=== PATIENT | male | born 1960 | race American Indian/Alaskan Native ===

== ENCOUNTER 2018-07-24 20:29 | Inpatient (IN) | payer MEDICARE, OTHER ==
--- NOTE | 2018-07-24 21:22 | ED PDOC ---
Arrival/HPI - General Chief Complaint: GI Problem Time Seen by Provider: 07/24/18 20:42 Historian: Mcfp - History of Present Illness Narrative History of Present Illness (Text): 07/24/18 21:19 58 year old male, whose past medical history includes hypertension, traumatic brain injury, AMS, G-tube placement, CVA with aphasia, and seizures, presents to the emergency department from retirement, for evaluation of vomiting. [facility] informs patient has had multiple episodes of vomiting today. Patient is nonverbal, HPI and ROS limited. Time/Duration: Prior to Arrival, 24 hours Symptom Onset: Gradual Symptom Course: Unchanged Context: Home (retirement) Past Medical History - Provider Review Nursing Documentation Reviewed: Yes - Cardiac Hx Cardiac Disorders: Yes Hx Hypertension: Yes Hx Hypotension: Yes - Neurological Hx Neurological Disorder: Yes HX Cerebrovascular Accident: Yes - HEENT Hx HEENT Disorder: Yes Hx Deafness: Yes - Gastrointestinal Hx Gastrointestinal Disorders: Yes Hx Gastroesophageal Reflux: Yes - Psychiatric Hx Substance Use: No Family/Social History - Physician Review Nursing Documentation Reviewed: Yes Family/Social History: No Known Family HX Smoking Status: Unknown If Ever Smoked Hx Alcohol Use: No Hx Substance Use: No Allergies/Home Meds Allergies/Adverse Reactions: Allergies No Known Allergies Allergy (Verified 07/24/18 20:38) Review of Systems - Physician Review All systems were reviewed & negative as marked: Yes - Review of Systems Systems not reviewed;Unavailable: Altered Mental Status Gastrointestinal: Vomiting Physical Exam Vital Signs Reviewed: Yes Vital Signs Temp Pulse Resp BP Pulse Ox 07/24/18 20:51 98.5 F 95 H 18 121/87 99 Temperature: Afebrile Blood Pressure: Normal Pulse: Tachycardic Respiratory Rate: Normal Appearance: Positive for: Well-Appearing, Non-Toxic, Comfortable Pain Distress: None Mental Status: Positive for: Alert and Oriented X 3 - Systems Exam Head: Present: Atraumatic, Normocephalic Pupils: Present: PERRL Extroacular Muscles: Present: EOMI Conjunctiva: Present: Normal Mouth: Present: Moist Mucous Membranes Neck: Present: Normal Range of Motion Respiratory/Chest: Present: Clear to Auscultation, Good Air Exchange. No: Respiratory Distress, Accessory Muscle Use Cardiovascular: Present: Regular Rate and Rhythm, Normal S1, S2. No: Murmurs Abdomen: Present: Ostomy Tubes (G-tube in place). No: Tenderness, Distention, Peritoneal Signs Back: Present: Normal Inspection Upper Extremity: Present: Normal Inspection. No: Cyanosis, Edema Lower Extremity: Present: Normal Inspection. No: Edema Neurological: Present: GCS=15, CN II-XII Intact, Speech Normal, Other (Positive contractures) Skin: Present: Warm, Dry, Normal Color. No: Rashes Medical Decision Making ED Course and Treatment: 07/24/18 21:35 Impression: 58 year old male presents with vomiting. Plan: -- CT ABD & Pelvis -- EKG -- CMP, Lipase, Cardiac iso -- CBC -- Chest X-ray -- Zofran -- Urinalysis -- Reassess and disposition Prior Visits: Notes and results from previous visits were reviewed. Progress Notes: 07/25/18 00:40 CT Abdomen and Pelvis without IV contrast CLINICAL HISTORY: VOMITING TECHNIQUE: Axial computed tomography images of the abdomen and pelvis without intravenous contrast. 648.91 mGy-cm CONTRAST: Without COMPARISON: None provided. FINDINGS: LUNG BASES: Mild dependent atelectasis at the lung bases. LIVER: Unremarkable. GALLBLADDER AND BILE DUCTS: The gallbladder appears within normal limits. No radioopaque gallstones are seen. No biliary ductal dilatation is evident. PANCREAS: Unremarkable. SPLEEN: Unremarkable. ADRENAL GLANDS: Unremarkable. KIDNEYS, URETERS, AND BLADDER: The bladder is partially decompressed and grossly unremarkable. STOMACH AND BOWEL: Small to moderate hiatal hernia. There is a percutaneous gastrostomy tube which appears intraluminal to the distal stomach. No bowel obstruction. APPENDIX: No evidence of acute appendicitis on CT examination. PERITONEUM: No pneumoperitoneum. No ascites. LYMPH NODES: No lymphadenopathy. REPRODUCTIVE: Unremarkable as visualized. VASCULATURE: Mild atherosclerotic changes of the abdominal aorta. BONES: There are moderate multilevel degenerative spine changes. MISCELLANEOUS: There is a fat and fluid containing left inguinal hernia. IMPRESSION: 1. No acute pathology identified in the abdomen or pelvis. 2. Additional and incidental findings as described. 07/25/18 01:00 Case had been discussed with who accepted to his service. on consult. - RAD Interpretation Narrative RAD Interpretations (Text): 07/25/18 00:40 CXR- No acute process Radiology Orders: 07/24/18 21:14 CHEST PORTABLE [RAD] Stat 07/24/18 21:16 ABD & PELVIS W/O PO OR IV CONT [CT] Stat - EKG Interpretation EKG Interpretation (Text): 07/25/18 00:39 EKG-NSR@89,non specific T wave changes Interpreted by ED Physician: Yes Type: 12 lead EKG - Medication Orders Current Medication Orders: Sodium Chloride (Sodium Chloride 0.9%) 1,000 mls @ 100 mls/hr IV .Q10H [facility] Ondansetron HCl (Zofran Inj) 4 mg IVP ONCE ONE Stop: 07/24/18 21:18 - Scribe Statement The provider has reviewed the documentation as recorded by the Raineibkevin Jeter Provider Scribe Attestation: All medical record entries made by the Scribe were at my direction and personally dictated by me. I have reviewed the chart and agree that the record accurately reflects my personal performance of the history, physical exam, medical decision making, and the department course for this patient. I have also personally directed, reviewed, and agree with the discharge instructions and disposition. Disposition/Present on Arrival - Present on Arrival Any Indicators Present on Arrival: No History of DVT/PE: No History of Uncontrolled Diabetes: No Urinary Catheter: No History of Decub. Ulcer: No History Surgical Site Infection Following: None - Disposition Have Diagnosis and Disposition been Completed?: Yes Diagnosis: Vomiting, Leukocytosis Disposition: HOSPITALIZED Disposition Time: 02:00 Patient Plan: Observation Condition: STABLE Referrals: Sonny Cano DO [Primary Care Provider] - Follow up with primary Forms: Rh[employer] (Pakistani)
[2018-07-24] MEDS ORDERED: Sodium Chloride 0.9% 1,000 ML IV SCH (21:30)
[2018-07-24 22:11] LABS: HEMOGLOBIN 11.4 g/dL (14.0-18.0); MEAN CORPUSCULAR HEMOGLOBIN 26.1 pg (25.0-35.0); MEAN CORPUSCULAR HGB CONC 31.1 g/dl (31.0-37.0); RBC 4.37 10^6/uL (3.5-6.1); RED CELL DISTRIBUTION WIDTH 19.5 % (11.5-14.5); WHITE BLOOD COUNT 16.3 10^3/uL (4.5-11.0)
[2018-07-24 22:14] LABS: ALB/GLOB RATIO 0.9 (1.1-1.8); ALBUMIN 4.1 g/dL (3.0-4.8); ALT/SGPT 14 U/L (7-56); AST/SGOT 42 U/L (17-59); BLOOD UREA NITROGEN 26 mg/dL (7-21); CALCIUM 9.4 mg/dL (8.4-10.5); GFR NON-AFRICAN AMERICAN > 60; LIPASE 68 U/L (23-300)
[2018-07-24 22:25] LABS: TROPONIN I < 0.01 ng/mL
[2018-07-24 22:30] LABS: CK-MB 0.7 ng/mL (0.0-3.6)
[2018-07-25] MEDS ORDERED: Sodium Chloride 0.9% 1,000 ML IV STA ×2 (02:08→09:12)
[2018-07-25] MEDS ORDERED: cefTRIAXone 1 gm 1 GM/100 ML BAG IV STA (03:34)
[2018-07-25 03:43] LABS: URINE BILIRUBIN NEGATIVE (NEGATIVE); URINE BLOOD LARGE (NEGATIVE); URINE GLUCOSE (UA) NEGATIVE (NEGATIVE); URINE LEUKOCYTE ESTERASE SMALL Leu/uL (NEGATIVE); URINE PROTEIN 30 mg/dL (<30 mg/dL); URINE UROBILINOGEN 0.2 E.U./dL (<1 E.U./dL)
[2018-07-25 03:51] LABS: URINE APPEARANCE CLEAR (CLEAR); URINE COLOR YELLOW (YELLOW)
[2018-07-25 04:00] LABS: URINE BACTERIA OCC /hpf; URINE EPITHELIAL CELLS 0 - 2 /hpf (0-5); URINE RBC 25 - 30 /hpf (0-2)
[2018-07-25 06:48] VITALS: BMI 19.9
--- NOTE | 2018-07-25 09:03 | RAD ---
Date of service: 07/24/2018 PROCEDURE: CHEST RADIOGRAPH, 1 VIEW HISTORY: vomiting COMPARISON: None available. FINDINGS: LUNGS: Clear. PLEURA: No pneumothorax or pleural fluid seen. CARDIOVASCULAR: No aortic atherosclerotic calcification present. Normal. OSSEOUS STRUCTURES: No significant abnormalities. VISUALIZED UPPER ABDOMEN: Normal. OTHER FINDINGS: None. IMPRESSION: No active disease.
[2018-07-25] MEDS ORDERED: Ipratropium 0.02% Inhal Soln (0.5 mg/2.5 ml) UD IH PRN (09:10)
--- NOTE | 2018-07-25 09:11 | CP.PCM.CON ---
<Angy Pereira - Last Filed: 07/25/18 16:20> History of Present Illness - History of Present Illness History of Present Illness: GastroenterologyFellow/[id number] Note 58 year old male with PMH of CVA with aphasia, traumatic brain injury s/p PEG placement, seizures, and HTN presenting with vomiting. Nursing facility contacted with note of initiating Jevity feedings at 3PM followed by three episodes of bilious vomiting despite decreasing feeding rate to 30cc/hr from 60cc/hr. Nurse denied signs of abdominal pain, diarrhea, constipation, hematemesis, melena, or hematochezia. Since admission, no further episodes of vomiting. Unable to confirm prior endoscopic history. Family History- unable to confirm Social History- unable to confirm Surgical History- unable to confirm Review of Systems - Review of Systems Review of Systems: 12-point review of systems negative except for as above Past Patient History - Past Social History Smoking Status: Never Smoked - CARDIAC Hx Cardiac Disorders: Yes Hx Hypertension: Yes - NEUROLOGICAL Hx Neurological Disorder: Yes HX Cerebrovascular Accident: Yes - HEENT Hx HEENT Problems: Yes Hx Deafness: Yes - MUSCULOSKELETAL/RHEUMATOLOGICAL Hx Musculoskeletal Disorders: Yes Hx Arthritis: Yes Hx Falls: Yes Other/Comment: contractures - GASTROINTESTINAL Hx Gastrointestinal Disorders: Yes Hx Gastroesophageal Reflux: Yes - GENITOURINARY/GYNECOLOGICAL Hx Genitourinary Disorders: Yes Other/Comment: neuromuscular dysfuntion of bladder - PSYCHIATRIC Hx Substance Use: No Meds Allergies/Adverse Reactions: Allergies Allergy/AdvReac Type Severity Reaction Status Date / Time No Known Allergies Allergy Verified 07/24/18 20:38 - Medications Medications: Current Medications Sodium Chloride (Sodium Chloride 0.9%) 1,000 mls @ 100 mls/hr IV .Q10H [facility] Last Admin: 07/24/18 21:56 Dose: 100 mls/hr Sodium Chloride (Sodium Chloride 0.9%) 1,000 mls @ 100 mls/hr IV .Q10H [facility] Stop: 07/25/18 12:07 Piperacillin Sod/Tazobactam Sod (Zosyn 3.375 In Ns 100ml) 100 mls @ 25 mls/hr IVPB Q8 [facility]; Protocol Stop: 08/01/18 14:01 Physical Exam - Constitutional Appears: Non-toxic, No Acute Distress - Head Exam Head Exam: ATRAUMATIC, NORMOCEPHALIC - Eye Exam Eye Exam: EOMI, PERRL. absent: Scleral icterus Pupil Exam: PERRL. absent: Miosis, Mydriatic - ENT Exam ENT Exam: Mucous Membranes Moist, Normal Oropharynx - Neck Exam Neck exam: Positive for: Full Rom, Normal Inspection - Respiratory Exam Respiratory Exam: Clear to Auscultation Bilateral. absent: Rales, Rhonchi, Wh eezes - Cardiovascular Exam Cardiovascular Exam: RRR, +S1, +S2. absent: Gallop, Rubs - GI/Abdominal Exam GI & Abdominal Exam: Hypoactive Bowel Sounds, Soft. absent: Distended, Firm, Guarding, Mass, Organomegaly, Rebound, Rigid, Tenderness Additional comments: PEG site LUQ C/D/I - Extremities Exam Extremities exam: Positive for: pedal edema Additional comments: flexion contractures - Neurological Exam Neurological exam: Alert, Oriented x3 - Psychiatric Exam Psychiatric exam: Normal Affect, Normal Mood Additional comments: unable to assess, nonverbal - Skin Skin Exam: Dry, Intact, Normal Color, Warm Results - Vital Signs Recent Vital Signs: Last Vital Signs Temp 98 F 07/25/18 06:00 Pulse 90 07/25/18 06:00 Resp 20 07/25/18 06:39 BP 150/89 07/25/18 06:00 Pulse Ox 100 07/25/18 06:00 - Labs Result Diagrams: 07/24/18 21:59 07/24/18 21:59 Labs: Laboratory Results - last 24 hr 07/24/18 07/24/18 07/24/18 21:59 21:59 22:01 WBC 16.3 H RBC 4.37 Hgb 11.4 L Hct 36.7 L MCV 84.0 MCH 26.1 MCHC 31.1 RDW 19.5 H Plt Count 406 MPV 11.0 Sodium 144 Potassium 4.5 Chloride 106 Carbon Dioxide 30 Anion Gap 13 BUN 26 H Creatinine 1.2 Est GFR ( Amer) > 60 Est GFR (Non-Af Amer) > 60 POC Glucose (mg/dL) 147 H Random Glucose 139 H Calcium 9.4 Total Bilirubin 0.5 AST 42 ALT 14 Alkaline Phosphatase 123 Lactate Dehydrogenase 455 Total Creatine Kinase 611 H CK-MB (CK-2) 0.7 CK-MB (CK-2) % Cancelled Troponin I < 0.01 Total Protein 8.7 H Albumin 4.1 Globulin 4.6 Albumin/Globulin Ratio 0.9 L Lipase 68 Urine Color Urine Appearance Urine pH Ur Specific [place] Urine Protein Urine Glucose (UA) Urine Ketones Urine Blood Urine Nitrate Urine Bilirubin Urine Urobilinogen Ur Leukocyte Esterase Urine RBC Urine WBC Ur Epithelial Cells Urine Bacteria 07/25/18 07/25/18 03:25 03:30 WBC RBC Hgb Hct MCV MCH MCHC RDW Plt Count MPV Sodium Potassium Chloride Carbon Dioxide Anion Gap BUN Creatinine Est GFR ( Amer) Est GFR (Non-Af Amer) POC Glucose (mg/dL) 131 H Random Glucose Calcium Total Bilirubin AST ALT Alkaline Phosphatase Lactate Dehydrogenase Total Creatine Kinase CK-MB (CK-2) CK-MB (CK-2) % Troponin I Total Protein Albumin Globulin Albumin/Globulin Ratio Lipase Urine Color Yellow Urine Appearance Clear Urine pH 6.0 Ur Specific [place] >= 1.030 Urine Protein 30 H Urine Glucose (UA) Negative Urine Ketones Negative Urine Blood Large H Urine Nitrate Negative Urine Bilirubin Negative Urine Urobilinogen 0.2 Ur Leukocyte Esterase Small H Urine RBC 25 - 30 H Urine WBC 1 - 3 Ur Epithelial Cells 0 - 2 Urine Bacteria Occ Assessment & Plan - Assessment and Plan (Free Text) Assessment: 58 year old male with PMH of CVA with aphasia, traumatic brain injury s/p PEG placement, seizures, and HTN presenting with vomiting. Unable to confirm prior endoscopic history. Plan: -remote vomiting episode -ID ruling out infectious process given SIRs criteria-leukocytosis and tachycardia -on Zosyn -no further episodes of vomiting since admission -CT A/P w/o contrast with no acute pathology -restart tube feedings as tolerated -monitor for recurrence of symptoms -anti-emetics as needed -will follow clinical course <Hunter Adams - Last Filed: 07/25/18 16:36> Meds - Medications Medications: Current Medications Atorvastatin Calcium (Lipitor) 40 mg GT DIN [facility] Clopidogrel Bisulfate (Plavix) 75 mg GT DAILY [facility] Last Admin: 07/25/18 11:04 Dose: 75 mg Enoxaparin Sodium (Lovenox) 40 mg SC DAILY [facility]; Protocol Last Admin: 07/25/18 11:04 Dose: 40 mg Piperacillin Sod/Tazobactam Sod (Zosyn 3.375 In Ns 100ml) 100 mls @ 25 mls/hr IVPB Q8 [facility]; Protocol Stop: 08/01/18 14:01 Last Admin: 07/25/18 13:46 Dose: 25 mls/hr Ipratropium [place] (Atrovent) 0.5 mg IH Q2 PRN PRN Reason: Shortness of Breath Metoprolol Tartrate (Lopressor) 25 mg GT BID [facility] Last Admin: 07/25/18 11:04 Dose: 25 mg Ondansetron HCl (Zofran Inj) 4 mg IVP Q6H PRN PRN Reason: Nausea/Vomiting Valproate Sodium (Depakene Oral Soln) 750 mg GT Q12 [facility] Last Admin: 07/25/18 11:04 Dose: 750 mg Results - Vital Signs Recent Vital Signs: Last Vital Signs Temp 98 F 07/25/18 06:00 Pulse 90 07/25/18 06:00 Resp 20 07/25/18 06:39 BP 150/89 07/25/18 06:00 Pulse Ox 100 07/25/18 06:00 - Labs Result Diagrams: 07/25/18 16:18 07/24/18 21:59 Labs: Laboratory Results - last 24 hr 07/24/18 07/24/18 07/24/18 21:59 21:59 22:01 WBC 16.3 H RBC 4.37 Hgb 11.4 L Hct 36.7 L MCV 84.0 MCH 26.1 MCHC 31.1 RDW 19.5 H Plt Count 406 MPV 11.0 Sodium 144 Potassium 4.5 Chloride 106 Carbon Dioxide 30 Anion Gap 13 BUN 26 H Creatinine 1.2 Est GFR ( Amer) > 60 Est GFR (Non-Af Amer) > 60 POC Glucose (mg/dL) 147 H Random Glucose 139 H Calcium 9.4 Total Bilirubin 0.5 AST 42 ALT 14 Alkaline Phosphatase 123 Lactate Dehydrogenase 455 Total Creatine Kinase 611 H CK-MB (CK-2) 0.7 CK-MB (CK-2) % Cancelled Troponin I < 0.01 Total Protein 8.7 H Albumin 4.1 Globulin 4.6 Albumin/Globulin Ratio 0.9 L Lipase 68 Urine Color Urine Appearance Urine pH Ur Specific [place] Urine Protein Urine Glucose (UA) Urine Ketones Urine Blood Urine Nitrate Urine Bilirubin Urine Urobilinogen Ur Leukocyte Esterase Urine RBC Urine WBC Ur Epithelial Cells Urine Bacteria 07/25/18 07/25/18 07/25/18 03:25 03:30 16:18 WBC 15.6 H RBC 4.18 Hgb 10.8 L Hct 34.8 L MCV 83.3 MCH 25.8 MCHC 31.0 RDW 19.3 H Plt Count 409 MPV 10.8 Sodium Potassium Chloride Carbon Dioxide Anion Gap BUN Creatinine Est GFR ( Amer) Est GFR (Non-Af Amer) POC Glucose (mg/dL) 131 H Random Glucose Calcium Total Bilirubin AST ALT Alkaline Phosphatase Lactate Dehydrogenase Total Creatine Kinase CK-MB (CK-2) CK-MB (CK-2) % Troponin I Total Protein Albumin Globulin Albumin/Globulin Ratio Lipase Urine Color Yellow Urine Appearance Clear Urine pH 6.0 Ur Specific [place] >= 1.030 Urine Protein 30 H Urine Glucose (UA) Negative Urine Ketones Negative Urine Blood Large H Urine Nitrate Negative Urine Bilirubin Negative Urine Urobilinogen 0.2 Ur Leukocyte Esterase Small H Urine RBC 25 - 30 H Urine WBC 1 - 3 Ur Epithelial Cells 0 - 2 Urine Bacteria Occ Attending/Attestation - Attestation I have personally seen and examined this patient.: Yes I have fully participated in the care of the patient.: Yes I have reviewed all pertinent clinical information: Yes Notes (Text): 07/25/18 16:31 I have seen and examined patient with GI fellow. Agree with above documentation with the following additions. In brief, this is a 58 year old male with history of CVA on plavix, aphasia, TBI s/p PEG placement, seizure disorder, HTN who presents from nursing facility with complaint of vomiting. Patient himself is not able to participate in meaningful conversation, additional information obtained via chart review and discussion with nursing staff and patient family members. He apparently had 3 episodes of non-bloody emesis while at nursing facility when tube feeding rate was attempted to be increased. There is no reported abdominal pain, fever/chills, weight loss. He was reportedly having on ce daily normal bowel movements. Unclear regarding prior endoscopic history. There has been no recurrent vomiting since arrival to hospital. CVA on plavix, aphasia TBI s/p PEG placement Seizure disorder HTN Leukocytosis Vomiting - resolved - May resume tube feeding at rate of 30 cc and advance slowly by 5 cc per hour to target of 50cc - Maintain strict aspiration precautions with head of bed elevation during feeds - Continue with antibiotic therapy as per ID - Anti-emetic therapy PRN - Continue with supportive care - No further planned GI interventions at this time, will sign off case. Please reconsult as necessary, thank you.
[2018-07-25] MEDS: Enoxaparin 40 mg Syringe SC SCH (11:04)
[2018-07-25] MEDS: Valproic Acid 250 mg/5 ml UD Cup GT SCH (11:04)
--- NOTE | 2018-07-25 12:04 | CARD ---
APPROVED REPORT Date of service: 07/24/2018 EKG Measurement Heart [id number] <Conclusion> Normal sinus rhythm with premature atrial complexes Otherwise normal ECG
--- NOTE | 2018-07-25 12:15 | CT ---
Date of service: 07/24/2018 PROCEDURE: CT Abdomen and Pelvis without intravenous contrast HISTORY: vomiting COMPARISON: None. TECHNIQUE: Without contrast.. Contrast dose: Radiation dose: Total exam DLP = 648.91 mGy-cm. This CT exam was performed using one or more of the following dose reduction techniques: Automated exposure control, adjustment of the mA and/or kV according to patient size, and/or use of iterative reconstruction technique. FINDINGS: LOWER THORAX: Unremarkable. LIVER: Unremarkable. No gross lesion or ductal dilatation. GALLBLADDER AND BILE DUCTS: Unremarkable. PANCREAS: Unremarkable. No gross lesion or ductal dilatation. SPLEEN: Unremarkable. ADRENALS: Unremarkable. No mass. KIDNEYS AND URETERS: Unremarkable. No hydronephrosis. No solid mass. VASCULATURE: Unremarkable. No aortic aneurysm. No aortic atherosclerotic calcification or mural plaque present. BOWEL: Unremarkable. No obstruction. No gross mural thickening. There is a gastrostomy tube in satisfactory position APPENDIX: Unremarkable. Normal appendix. PERITONEUM: Unremarkable. No free fluid. No free air. Small fat containing left inguinal hernia. This contains a small amount of fluid LYMPH NODES: Unremarkable. No enlarged lymph nodes. BLADDER: Unremarkable. REPRODUCTIVE: Unremarkable. BONES: No acute fracture. OTHER FINDINGS: The report concurs with the preliminary [facility] report IMPRESSION: No acute intra-abdominal findings
[2018-07-25] MEDS: Piperacillin/Tazobact 3.375 gm 100 ML IVPB SCH (13:46)
--- NOTE | 2018-07-25 14:51 | CP.PCM.CON ---
<Mayito Santos - Last Filed: 07/25/18 14:48> History of Present Illness - History of Present Illness History of Present Illness: Infectious disease consult note: 58-year-old male with past medical history of CVA with aphasia, traumatic brain injury, seizure disorder, hypertension, presents to the ED with vomiting. Patient is nonverbal due to the aphasia therefore HPI was limited. As per nursing notes and prior notes patient was sent from the [facility] for vomiting. Patient has a PEG tube placed and was fed through it however was vomiting up food. No reported history of abdominal pain. Infectious disease was consulted for vomiting and leukocytosis. 12 point ROS and further HPI was unobtainable due to nonverbal Review of Systems - Review of Systems Systems not reviewed;Unavailable: Other (Aphasia due to stroke) Past Patient History - Past Social History Smoking Status: Never Smoked - CARDIAC Hx Cardiac Disorders: Yes Hx Hypertension: Yes - NEUROLOGICAL Hx Neurological Disorder: Yes HX Cerebrovascular Accident: Yes - HEENT Hx HEENT Problems: Yes Hx Deafness: Yes - MUSCULOSKELETAL/RHEUMATOLOGICAL Hx Musculoskeletal Disorders: Yes Hx Arthritis: Yes Hx Falls: Yes Other/Comment: contractures - GASTROINTESTINAL Hx Gastrointestinal Disorders: Yes Hx Gastroesophageal Reflux: Yes - GENITOURINARY/GYNECOLOGICAL Hx Genitourinary Disorders: Yes Other/Comment: neuromuscular dysfuntion of bladder - PSYCHIATRIC Hx Substance Use: No Meds Allergies/Adverse Reactions: Allergies Allergy/AdvReac Type Severity Reaction Status Date / Time No Known Allergies Allergy Verified 07/24/18 20:38 - Medications Medications: Current Medications Atorvastatin Calcium (Lipitor) 40 mg GT DIN [facility] Clopidogrel Bisulfate (Plavix) 75 mg GT DAILY [facility] Last Admin: 07/25/18 11:04 Dose: 75 mg Enoxaparin Sodium (Lovenox) 40 mg SC DAILY [facility]; Protocol Last Admin: 07/25/18 11:04 Dose: 40 mg Piperacillin Sod/Tazobactam Sod (Zosyn 3.375 In Ns 100ml) 100 mls @ 25 mls/hr IVPB Q8 [facility]; Protocol Stop: 08/01/18 14:01 Last Admin: 07/25/18 13:46 Dose: 25 mls/hr Ipratropium [place] (Atrovent) 0.5 mg IH Q2 PRN PRN Reason: Shortness of Breath Metoprolol Tartrate (Lopressor) 25 mg GT BID [facility] Last Admin: 07/25/18 11:04 Dose: 25 mg Ondansetron HCl (Zofran Inj) 4 mg IVP Q6H PRN PRN Reason: Nausea/Vomiting Valproate Sodium (Depakene Oral Soln) 750 mg GT Q12 [facility] Last Admin: 07/25/18 11:04 Dose: 750 mg Physical Exam - Constitutional Appears: No Acute Distress - Head Exam Head Exam: ATRAUMATIC, NORMOCEPHALIC - Eye Exam Eye Exam: EOMI - ENT Exam ENT Exam: Mucous Membranes Moist - Respiratory Exam Respiratory Exam: Clear to Auscultation Bilateral. absent: Rales, Wheezes - Cardiovascular Exam Cardiovascular Exam: REGULAR RHYTHM, +S1, +S2 - GI/Abdominal Exam GI & Abdominal Exam: Normal Bowel Sounds, Soft. absent: Distended, Tenderness Additional comments: Area around the PEG tube site clean no erythema - Extremities Exam Extremities exam: Negative for: calf tenderness, pedal edema - Neurological Exam Neurological exam: Alert, Oriented x3 - Psychiatric Exam Psychiatric exam: Normal Mood - Skin Skin Exam: Dry, Warm Results - Vital Signs Recent Vital Signs: Last Vital Signs Temp 98 F 07/25/18 06:00 Pulse 90 07/25/18 06:00 Resp 20 07/25/18 06:39 BP 150/89 07/25/18 06:00 Pulse Ox 100 07/25/18 06:00 - Labs Result Diagrams: 07/24/18 21:59 07/24/18 21:59 Labs: Laboratory Results - last 24 hr 07/24/18 07/24/18 07/24/18 21:59 21:59 22:01 WBC 16.3 H RBC 4.37 Hgb 11.4 L Hct 36.7 L MCV 84.0 MCH 26.1 MCHC 31.1 RDW 19.5 H Plt Count 406 MPV 11.0 Sodium 144 Potassium 4.5 Chloride 106 Carbon Dioxide 30 Anion Gap 13 BUN 26 H Creatinine 1.2 Est GFR ( Amer) > 60 Est GFR (Non-Af Amer) > 60 POC Glucose (mg/dL) 147 H Random Glucose 139 H Calcium 9.4 Total Bilirubin 0.5 AST 42 ALT 14 Alkaline Phosphatase 123 Lactate Dehydrogenase 455 Total Creatine Kinase 611 H CK-MB (CK-2) 0.7 CK-MB (CK-2) % Cancelled Troponin I < 0.01 Total Protein 8.7 H Albumin 4.1 Globulin 4.6 Albumin/Globulin Ratio 0.9 L Lipase 68 Urine Color Urine Appearance Urine pH Ur Specific [place] Urine Protein Urine Glucose (UA) Urine Ketones Urine Blood Urine Nitrate Urine Bilirubin Urine Urobilinogen Ur Leukocyte Esterase Urine RBC Urine WBC Ur Epithelial Cells Urine Bacteria 07/25/18 07/25/18 03:25 03:30 WBC RBC Hgb Hct MCV MCH MCHC RDW Plt Count MPV Sodium Potassium Chloride Carbon Dioxide Anion Gap BUN Creatinine Est GFR ( Amer) Est GFR (Non-Af Amer) POC Glucose (mg/dL) 131 H Random Glucose Calcium Total Bilirubin AST ALT Alkaline Phosphatase Lactate Dehydrogenase Total Creatine Kinase CK-MB (CK-2) CK-MB (CK-2) % Troponin I Total Protein Albumin Globulin Albumin/Globulin Ratio Lipase Urine Color Yellow Urine Appearance Clear Urine pH 6.0 Ur Specific [place] >= 1.030 Urine Protein 30 H Urine Glucose (UA) Negative Urine Ketones Negative Urine Blood Large H Urine Nitrate Negative Urine Bilirubin Negative Urine Urobilinogen 0.2 Ur Leukocyte Esterase Small H Urine RBC 25 - 30 H Urine WBC 1 - 3 Ur Epithelial Cells 0 - 2 Urine Bacteria Occ Assessment & Plan - Assessment and Plan (Free Text) Assessment: 58-year-old male with past medical history of CVA with aphasia, traumatic brain injury, seizure disorder, hypertension, presents with vomiting. Patient also found to have leukocytosis of 16. Continue with Zosyn for any intra-abdominal infection Follow-up CBC ordered F/u abdominal CT Follow-up septic workup Continue to monitor for any changes Case and plan was reviewed and discussed with Dr. Thornton <Ean Thornton - Last Filed: 07/25/18 16:04> Meds - Medications Medications: Current Medications Atorvastatin Calcium (Lipitor) 40 mg GT DIN [facility] Clopidogrel Bisulfate (Plavix) 75 mg GT DAILY [facility] Last Admin: 07/25/18 11:04 Dose: 75 mg Enoxaparin Sodium (Lovenox) 40 mg SC DAILY [facility]; Protocol Last Admin: 07/25/18 11:04 Dose: 40 mg Piperacillin Sod/Tazobactam Sod (Zosyn 3.375 In Ns 100ml) 100 mls @ 25 mls/hr IVPB Q8 [facility]; Protocol Stop: 08/01/18 14:01 Last Admin: 07/25/18 13:46 Dose: 25 mls/hr Ipratropium [place] (Atrovent) 0.5 mg IH Q2 PRN PRN Reason: Shortness of Breath Metoprolol Tartrate (Lopressor) 25 mg GT BID [facility] Last Admin: 07/25/18 11:04 Dose: 25 mg Ondansetron HCl (Zofran Inj) 4 mg IVP Q6H PRN PRN Reason: Nausea/Vomiting Valproate Sodium (Depakene Oral Soln) 750 mg GT Q12 [facility] Last Admin: 07/25/18 11:04 Dose: 750 mg Results - Vital Signs Recent Vital Signs: Last Vital Signs Temp 98 F 07/25/18 06:00 Pulse 90 07/25/18 06:00 Resp 20 07/25/18 06:39 BP 150/89 07/25/18 06:00 Pulse Ox 100 07/25/18 06:00 - Labs Result Diagrams: 07/24/18 21:59 07/24/18 21:59 Labs: Laboratory Results - last 24 hr 07/24/18 07/24/18 07/24/18 21:59 21:59 22:01 WBC 16.3 H RBC 4.37 Hgb 11.4 L Hct 36.7 L MCV 84.0 MCH 26.1 MCHC 31.1 RDW 19.5 H Plt Count 406 MPV 11.0 Sodium 144 Potassium 4.5 Chloride 106 Carbon Dioxide 30 Anion Gap 13 BUN 26 H Creatinine 1.2 Est GFR ( Amer) > 60 Est GFR (Non-Af Amer) > 60 POC Glucose (mg/dL) 147 H Random Glucose 139 H Calcium 9.4 Total Bilirubin 0.5 AST 42 ALT 14 Alkaline Phosphatase 123 Lactate Dehydrogenase 455 Total Creatine Kinase 611 H CK-MB (CK-2) 0.7 CK-MB (CK-2) % Cancelled Troponin I < 0.01 Total Protein 8.7 H Albumin 4.1 Globulin 4.6 Albumin/Globulin Ratio 0.9 L Lipase 68 Urine Color Urine Appearance Urine pH Ur Specific [place] Urine Protein Urine Glucose (UA) Urine Ketones Urine Blood Urine Nitrate Urine Bilirubin Urine Urobilinogen Ur Leukocyte Esterase Urine RBC Urine WBC Ur Epithelial Cells Urine Bacteria 07/25/18 07/25/18 03:25 03:30 WBC RBC Hgb Hct MCV MCH MCHC RDW Plt Count MPV Sodium Potassium Chloride Carbon Dioxide Anion Gap BUN Creatinine Est GFR ( Amer) Est GFR (Non-Af Amer) POC Glucose (mg/dL) 131 H Random Glucose Calcium Total Bilirubin AST ALT Alkaline Phosphatase Lactate Dehydrogenase Total Creatine Kinase CK-MB (CK-2) CK-MB (CK-2) % Troponin I Total Protein Albumin Globulin Albumin/Globulin Ratio Lipase Urine Color Yellow Urine Appearance Clear Urine pH 6.0 Ur Specific [place] >= 1.030 Urine Protein 30 H Urine Glucose (UA) Negative Urine Ketones Negative Urine Blood Large H Urine Nitrate Negative Urine Bilirubin Negative Urine Urobilinogen 0.2 Ur Leukocyte Esterase Small H Urine RBC 25 - 30 H Urine WBC 1 - 3 Ur Epithelial Cells 0 - 2 Urine Bacteria Occ Assessment & Plan - Assessment and Plan (Free Text) Assessment: Infectious diseases Attending Physician Attestation Patient seen and examined, discussed with medical equipment technician. I have reviewed the patient's history of present illness, past medical, social, personal and family histories, pertinent physical exam findings, course so far in this hospital admission, pertinent laboratory and imaging results. I agree with the above findings, assessment and plan. In addition,started Zosyn for patient with SIRS, with vomiting R/O intra-abdominal infection. Follow up CT A/P results and will follow up blood cx.
[2018-07-25 16:21] LABS: HEMOGLOBIN 10.8 g/dL (14.0-18.0); MEAN CELL VOLUME 83.3 fl (80.0-105.0); MEAN CORPUSCULAR HEMOGLOBIN 25.8 pg (25.0-35.0); MEAN PLATELET VOLUME 10.8 fl (7.0-11.0); RBC 4.18 10^6/uL (3.5-6.1); RED CELL DISTRIBUTION WIDTH 19.3 % (11.5-14.5); WHITE BLOOD COUNT 15.6 10^3/uL (4.5-11.0)
--- NOTE | 2018-07-25 19:52 | HP ---
DATE OF EXAM: 07/25/2018 HISTORY OF PRESENT ILLNESS: He is from the long term. He has been on IV antibiotics for an infection. He got worse. He had nausea and vomiting for 3 days in a row, even though I was decreasing and stopping the NG tube feedings, it is still. He is having nausea and vomiting, so we sent him to the emergency room as a 3 days of trying to fix. He has also been on IV antibiotics for his sepsis in the long term. PAST MEDICAL HISTORY: He is a 58-year-old man with the past medical history that includes traumatic brain injury, altered mental status, G-tube placement, CVA with aphasia, seizures, and multiple infections from the urine. He is on IV antibiotics on and off for the past 3 months. Now, he starting to have nausea and vomiting. He has hypertension, hypotension, CVA, and he has got reflux. SOCIAL HISTORY: No smoke. No drink. No drugs. ALLERGIES: NO KNOWN DRUG ALLERGIES. MEDICATIONS: He has a list of medicines and his list is nonverbal. REVIEW OF SYSTEMS: Cannot do review of systems. PHYSICAL EXAMINATION: VITAL SIGNS: He has 98.5 temperature, 95 pulse, 18 respiratory rate, 121/87 blood pressure, and 99% O2 sat. GENERAL: He does open his eyes. He is very alert today, which is good for him at his basic mental appearance. He is well-appearing and nontoxic. Eyes open; he looked at me. He is alert and oriented, I believe to one. HEENT: Head is atraumatic and normocephalic. Extraocular muscles are intact. Throat is dry. NECK: Supple. HEART: Regular rate. Normal S1 and S2. LUNGS: Decreased breath sounds bilaterally, but clear. ABDOMEN: Soft and nontender. Positive bowel sounds. He has G-tube in place. No edema. EXTREMITIES: Mildly contracted in all 4 extremities. NEUROLOGIC: He is alert. SKIN: For I could tell is for the most part intact. No apparent rashes. LABORATORY DATA: He had multiple tests done. He has a urine, which has small leukocytes, large blood. He has sodium 144, potassium 4.5, BUN 26, creatinine 1.9, and blood sugar was 131. Calcium is 9.4 and total bilirubin is 0.5. AST is 42, ALT is 14, and alkaline phosphatase is 123. His troponin I was less than 0.01. Total protein is 0.7. White count 16.3, hemoglobin 11.4, hematocrit is 36.7, and platelets of 406. His chest x-ray shows no acute disease. CAT scan of the abdomen and pelvis is pending. ASSESSMENT AND PLAN: He is going to have a consult with Infectious Disease and GI for his nausea and vomiting. He will be on Zofran, Ativan, Lopressor, and Lovenox. He is on Rocephin, Crestor, Depakene, Zofran, and Zosyn right now. We will see how he does, see what the cultures bringing out. I will check his labs tomorrow and made him more than 2 overnights with 16,000 white count. Sonny Cano DO MTDRoe
[2018-07-26] MEDS: Piperacillin/Tazobact 3.375 gm 100 ML IVPB SCH ×4 (00:09→23:34)
[2018-07-26] MEDS: Valproic Acid 250 mg/5 ml UD Cup GT SCH ×2 (00:10→12:10)
[2018-07-26 07:26] LABS: HEMOGLOBIN 10.3 g/dL (14.0-18.0); MEAN CELL VOLUME 83.7 fl (80.0-105.0); MEAN CORPUSCULAR HEMOGLOBIN 25.4 pg (25.0-35.0); MEAN CORPUSCULAR HGB CONC 30.4 g/dl (31.0-37.0); MEAN PLATELET VOLUME 11.3 fl (7.0-11.0); RBC 4.05 10^6/uL (3.5-6.1); RED CELL DISTRIBUTION WIDTH 19.4 % (11.5-14.5); WHITE BLOOD COUNT 13.6 10^3/uL (4.5-11.0)
[2018-07-26 07:59] LABS: ALB/GLOB RATIO 0.9 (1.1-1.8); ALBUMIN 3.7 g/dL (3.0-4.8); ALT/SGPT 17 U/L (7-56); AST/SGOT 31 U/L (17-59); BLOOD UREA NITROGEN 21 mg/dL (7-21); CALCIUM 8.9 mg/dL (8.4-10.5); GFR NON-AFRICAN AMERICAN > 60
[2018-07-26] MEDS: Enoxaparin 40 mg Syringe SC SCH (09:44)
--- NOTE | 2018-07-26 10:12 | CP.PCM.APN ---
Subjective - Date & Time of Evaluation Date of Evaluation: 07/26/18 Time of Evaluation: 08:00 - Subjective Subjective: Pt seen and examined at bedside. He is nonverbal. In no acute distress. Per RN, no vomiting noted since feeding tube was restarted yesterday. Objective - Vital Signs/Intake and Output Vital Signs (last 24 hours): Temp Pulse Resp BP Pulse Ox 98.9 F 101 H 20 131/90 100 07/26/18 06:00 07/26/18 09:42 07/26/18 06:00 07/26/18 09:42 07/26/18 06:00 Intake and Output: 07/26/18 07/26/18 06:59 18:59 Intake Total 0 Balance 0 - Medications Medications: Current Medications Atorvastatin Calcium (Lipitor) 40 mg GT DIN [facility] Last Admin: 07/25/18 17:26 Dose: 40 mg Clopidogrel Bisulfate (Plavix) 75 mg GT DAILY [facility] Last Admin: 07/26/18 09:44 Dose: 75 mg Enoxaparin Sodium (Lovenox) 40 mg SC DAILY [facility]; Protocol Last Admin: 07/26/18 09:44 Dose: 40 mg Piperacillin Sod/Tazobactam Sod (Zosyn 3.375 In Ns 100ml) 100 mls @ 25 mls/hr IVPB Q8 [facility]; Protocol Stop: 08/01/18 14:01 Last Admin: 07/26/18 06:32 Dose: 25 mls/hr Insulin Human Regular (Humulin R Med) 0 units SC ACHS [facility]; Protocol Ipratropium [place] (Atrovent) 0.5 mg IH Q2 PRN PRN Reason: Shortness of Breath Metoprolol Tartrate (Lopressor) 25 mg GT BID [facility] Last Admin: 07/26/18 09:42 Dose: 25 mg Ondansetron HCl (Zofran Inj) 4 mg IVP Q6H PRN PRN Reason: Nausea/Vomiting Valproate Sodium (Depakene Oral Soln) 750 mg GT Q12 [facility] Last Admin: 07/26/18 00:10 Dose: 750 mg - Labs Labs: 07/26/18 07:00 07/26/18 07:00 - Constitutional Appears: No Acute Distress - Neck Exam Neck Exam: Normal Inspection - Cardiovascular Exam Cardiovascular Exam: REGULAR RHYTHM, +S1, +S2 - GI/Abdominal Exam Additional comments: +PEG tube, no signs of infection - Rectal Exam Rectal Exam: Deferred - Neurological Exam Neurological Exam: Awake Assessment and Plan - Assessment and Plan (Free Text) Assessment: pt is a 58 y.o. male with past medical history of CVA with aphasia, traumatic brain injury, seizure disorder, hypertension, presented to ED from [place] for vomiting. He was found to have leukocytosis in ED. ITS Impressions Chest X-Ray 07/24/18 21:14 IMPRESSION: No active disease. Abdomen/Pelvis CT 07/24/18 21:16 IMPRESSION: No acute intra-abdominal findings Plan: Vomiting resolved, will increase rate of feeding. Monitor for vomiting. Aspiration precautions Head of bed at least 45 degrees at all time UCx growing gram negative angel and gram positive cocci - awaiting sensitivity On Zosyn per ID recs ID and GI on consult Meds per MAR Will continue to follow
--- NOTE | 2018-07-26 10:46 | PN ---
DATE: 07/26/2018 SUBJECTIVE: He is resting comfortably in bed. He is very alert for him. His eyes are open, he is looking at me. He is focusing on me which is good for him. Sometimes, he does not do that. He is on Atrovent, Depakene, Lipitor, Lopressor, Lovenox, Plavix, Zofran, and Zosyn. PHYSICAL EXAMINATION: VITAL SIGNS: He has a 98.9 temperature, 90 pulse, 131/70 blood pressure, 20 respiratory rate and 100% O2 sat on nasal cannula. HEENT: Head is atraumatic, normocephalic. HEART: Regular rate. LUNGS: Decreased breath sounds, but clear. ABDOMEN: Soft with a feeding tube. EXTREMITIES: No edema. LABORATORY DATA: He has a 30.6 white count coming down, 10.3 hemoglobin, 32.9 hematocrit with 390 platelets. 145 sodium, potassium 4.5, BUN 21, creatinine 1.1, GFR is 60, sugar is 215, calcium is 8.9, total bili is 0.4. AST is 31, ALT is 17, alk phos is 119, total protein is 8. He had gram-positive cocci and urine culture. ASSESSMENT AND PLAN: He is being seen by Infectious Disease and GI. He came in throwing up for 3 days in a row. He is on Zofran, Ativan, I will leave it up to GI restart his feedings. He is n.p.o. at this time. Continue intravenous antibiotics for his urinary tract infection. Sonny Cano DO MTDD
[2018-07-26] MEDS: Insulin Reg-MEDIUM-Coverage SC SCH ×2 (11:52→17:25)
--- NOTE | 2018-07-26 14:16 | CP.PCM.PN ---
<Mayito Santos - Last Filed: 07/26/18 14:18> Subjective - Date & Time of Evaluation Date of Evaluation: 07/26/18 Time of Evaluation: 10:25 - Subjective Subjective: ID progress note: Pt seen and examined at bedside. No acute events overnight. Patient is non verbal, as per nursing no further episodes of vomiting. 12 Point ROS unobtainable Objective - Vital Signs/Intake and Output Vital Signs (last 24 hours): Temp Pulse Resp BP Pulse Ox 98.9 F 101 H 20 131/90 100 07/26/18 06:00 07/26/18 09:42 07/26/18 06:00 07/26/18 09:42 07/26/18 06:00 Intake and Output: 07/26/18 07/26/18 06:59 18:59 Intake Total 0 Balance 0 - Medications Medications: Current Medications Atorvastatin Calcium (Lipitor) 40 mg GT DIN [facility] Last Admin: 07/25/18 17:26 Dose: 40 mg Clopidogrel Bisulfate (Plavix) 75 mg GT DAILY [facility] Last Admin: 07/26/18 09:44 Dose: 75 mg Enoxaparin Sodium (Lovenox) 40 mg SC DAILY [facility]; Protocol Last Admin: 07/26/18 09:44 Dose: 40 mg Piperacillin Sod/Tazobactam Sod (Zosyn 3.375 In Ns 100ml) 100 mls @ 25 mls/hr IVPB Q8 [facility]; Protocol Stop: 08/01/18 14:01 Last Admin: 07/26/18 13:25 Dose: 25 mls/hr Insulin Human Regular (Humulin R Med) 0 units SC ACHS [facility]; Protocol Last Admin: 07/26/18 11:52 Dose: 3 units Ipratropium [place] (Atrovent) 0.5 mg IH Q2 PRN PRN Reason: Shortness of Breath Metoprolol Tartrate (Lopressor) 25 mg GT BID [facility] Last Admin: 07/26/18 09:42 Dose: 25 mg Ondansetron HCl (Zofran Inj) 4 mg IVP Q6H PRN PRN Reason: Nausea/Vomiting Valproate Sodium (Depakene Oral Soln) 750 mg GT Q12 [facility] Last Admin: 07/26/18 12:10 Dose: 750 mg - Labs Labs: 07/26/18 07:00 07/26/18 07:00 - Constitutional Appears: No Acute Distress - Head Exam Head Exam: ATRAUMATIC, NORMOCEPHALIC - Eye Exam Eye Exam: EOMI - Respiratory Exam Respiratory Exam: Clear to Ausculation Bilateral (no rrw) - Cardiovascular Exam Cardiovascular Exam: REGULAR RHYTHM, RRR, +S1, +S2 - GI/Abdominal Exam GI & Abdominal Exam: Soft. absent: Tenderness - Extremities Exam Extremities Exam: absent: Calf Tenderness, Pedal Edema - Neurological Exam Neurological Exam: Awake - Psychiatric Exam Psychiatric exam: Normal Mood - Skin Skin Exam: Dry, Normal Color Assessment and Plan - Assessment and Plan (Free Text) Assessment: 58-year-old male with past medical history of CVA with aphasia, traumatic brain injury, seizure disorder, hypertension, presents with vomiting. Patient also found to have leukocytosis of 16. Wbc dec to 13.6 today Continue with Zosyn for any intra-abdominal infection F/u abdominal CT - neg Follow-up septic workup Continue to monitor for any changes Case and plan was reviewed and discussed with Dr. Thornton <Ean Thornton - Last Filed: 07/26/18 15:32> Objective - Vital Signs/Intake and Output Vital Signs (last 24 hours): Temp Pulse Resp BP Pulse Ox 98.9 F 77 18 127/89 99 07/26/18 14:00 07/26/18 14:00 07/26/18 14:00 07/26/18 14:00 07/26/18 14:00 Intake and Output: 07/26/18 07/26/18 06:59 18:59 Intake Total 0 Balance 0 - Medications Medications: Current Medications Atorvastatin Calcium (Lipitor) 40 mg GT DIN [facility] Last Admin: 07/25/18 17:26 Dose: 40 mg Clopidogrel Bisulfate (Plavix) 75 mg GT DAILY [facility] Last Admin: 07/26/18 09:44 Dose: 75 mg Enoxaparin Sodium (Lovenox) 40 mg SC DAILY [facility]; Protocol Last Admin: 07/26/18 09:44 Dose: 40 mg Piperacillin Sod/Tazobactam Sod (Zosyn 3.375 In Ns 100ml) 100 mls @ 25 mls/hr IVPB Q8 [facility]; Protocol Stop: 08/01/18 14:01 Last Admin: 07/26/18 13:25 Dose: 25 mls/hr Insulin Human Regular (Humulin R Med) 0 units SC ACHS [facility]; Protocol Last Admin: 07/26/18 11:52 Dose: 3 units Ipratropium [place] (Atrovent) 0.5 mg IH Q2 PRN PRN Reason: Shortness of Breath Metoprolol Tartrate (Lopressor) 25 mg GT BID [facility] Last Admin: 07/26/18 09:42 Dose: 25 mg Ondansetron HCl (Zofran Inj) 4 mg IVP Q6H PRN PRN Reason: Nausea/Vomiting Valproate Sodium (Depakene Oral Soln) 750 mg GT Q12 [facility] Last Admin: 07/26/18 12:10 Dose: 750 mg - Labs Labs: 07/26/18 07:00 07/26/18 07:00 Assessment and Plan - Assessment and Plan (Free Text) Assessment: Infectious diseases Attending Physician Attestation Patient seen and examined, discussed with medical referral coordinator. I have reviewed the patient's history of present illness, past medical, social, personal and family histories, pertinent physical exam findings, course so far in this hospital admission, pertinent laboratory and imaging results. I agree with the above findings, assessment and plan. In addition, continue Zosyn for possible intra- abdominal infection. Follow up final cultures and further plans of Surgery.
[2018-07-27] MEDS: Insulin Reg-MEDIUM-Coverage SC SCH ×5 (05:31→22:00)
[2018-07-27] MEDS: Piperacillin/Tazobact 3.375 gm 100 ML IVPB SCH ×3 (06:10→21:34)
[2018-07-27 07:47] LABS: HEMOGLOBIN 10.5 g/dL (14.0-18.0); MEAN CELL VOLUME 82.9 fl (80.0-105.0); MEAN CORPUSCULAR HEMOGLOBIN 26.1 pg (25.0-35.0); MEAN CORPUSCULAR HGB CONC 31.4 g/dl (31.0-37.0); MEAN PLATELET VOLUME 11.5 fl (7.0-11.0); RBC 4.03 10^6/uL (3.5-6.1); RED CELL DISTRIBUTION WIDTH 19.6 % (11.5-14.5); WHITE BLOOD COUNT 14.6 10^3/uL (4.5-11.0)
[2018-07-27 08:07] LABS: ALB/GLOB RATIO 0.9 (1.1-1.8); ALBUMIN 3.8 g/dL (3.0-4.8); ALT/SGPT 11 U/L (7-56); AST/SGOT 33 U/L (17-59); BLOOD UREA NITROGEN 15 mg/dL (7-21); CALCIUM 9.3 mg/dL (8.4-10.5); GFR NON-AFRICAN AMERICAN > 60
--- NOTE | 2018-07-27 08:17 | CP.PCM.PN ---
<Mayito Santos - Last Filed: 07/27/18 12:29> Subjective - Date & Time of Evaluation Date of Evaluation: 07/27/18 Time of Evaluation: 07:10 - Subjective Subjective: ID progress note: Pt seen and examined at bedside. No acute events overnight. Patient is non verbal. Fedding was restarted and no further episodes of vomiting. 12 Point ROS unobtainable Objective - Vital Signs/Intake and Output Vital Signs (last 24 hours): Temp Pulse Resp BP Pulse Ox 98.4 F 95 H 20 133/77 98 07/26/18 22:57 07/26/18 22:57 07/26/18 22:57 07/26/18 22:57 07/26/18 22:57 Intake and Output: 07/27/18 07/27/18 06:59 18:59 Intake Total 0 Balance 0 - Medications Medications: Current Medications Atorvastatin Calcium (Lipitor) 40 mg GT DIN [facility] Last Admin: 07/26/18 17:25 Dose: 40 mg Clopidogrel Bisulfate (Plavix) 75 mg GT DAILY [facility] Last Admin: 07/26/18 09:44 Dose: 75 mg Enoxaparin Sodium (Lovenox) 40 mg SC DAILY [facility]; Protocol Last Admin: 07/26/18 09:44 Dose: 40 mg Piperacillin Sod/Tazobactam Sod (Zosyn 3.375 In Ns 100ml) 100 mls @ 25 mls/hr IVPB Q8 [facility]; Protocol Stop: 08/01/18 14:01 Last Admin: 07/27/18 06:10 Dose: 25 mls/hr Insulin Human Regular (Humulin R Med) 0 units SC ACHS [facility]; Protocol Last Admin: 07/27/18 05:31 Dose: Not Given Ipratropium [place] (Atrovent) 0.5 mg IH Q2 PRN PRN Reason: Shortness of Breath Metoprolol Tartrate (Lopressor) 25 mg GT BID [facility] Last Admin: 07/26/18 17:25 Dose: 25 mg Ondansetron HCl (Zofran Inj) 4 mg IVP Q6H PRN PRN Reason: Nausea/Vomiting Valproate Sodium (Depakene Oral Soln) 750 mg GT Q12 [facility] Last Admin: 07/26/18 12:10 Dose: 750 mg - Labs Labs: 07/27/18 07:30 07/27/18 07:30 - Constitutional Appears: No Acute Distress - Head Exam Head Exam: ATRAUMATIC, NORMOCEPHALIC - Eye Exam Eye Exam: EOMI - Respiratory Exam Respiratory Exam: Clear to Ausculation Bilateral, Wheezes - Cardiovascular Exam Cardiovascular Exam: REGULAR RHYTHM, +S1, +S2 - GI/Abdominal Exam GI & Abdominal Exam: Soft. absent: Tenderness - Extremities Exam Extremities Exam: absent: Calf Tenderness, Pedal Edema - Neurological Exam Neurological Exam: Awake - Psychiatric Exam Psychiatric exam: Normal Mood - Skin Skin Exam: Dry, Warm Assessment and Plan - Assessment and Plan (Free Text) Assessment: 58-year-old male with past medical history of CVA with aphasia, traumatic brain injury, seizure disorder, hypertension, presents with vomiting. Patient also found to have leukocytosis of 16. Wbc today 14.6 Urine cx likely contamination Continue with Zosyn for any intra-abdominal infection - for 5-7 days duration F/u abdominal CT - neg Follow-up septic workup Continue to monitor for any changes Case and plan was reviewed and discussed with Dr. Thornton <Ean Thornton - Last Filed: 07/27/18 18:36> Objective - Vital Signs/Intake and Output Vital Signs (last 24 hours): Temp Pulse Resp BP Pulse Ox 98.8 F 102 H 16 139/92 H 99 07/27/18 14:30 07/27/18 18:22 07/27/18 14:30 07/27/18 18:22 07/27/18 14:30 Intake and Output: 07/27/18 07/27/18 06:59 18:59 Intake Total 0 0 Balance 0 0 - Medications Medications: Current Medications Atorvastatin Calcium (Lipitor) 40 mg GT DIN [facility] Last Admin: 07/27/18 16:06 Dose: 40 mg Clopidogrel Bisulfate (Plavix) 75 mg GT DAILY [facility] Last Admin: 07/27/18 10:05 Dose: 75 mg Enoxaparin Sodium (Lovenox) 40 mg SC DAILY [facility]; Protocol Last Admin: 07/27/18 10:05 Dose: 40 mg Piperacillin Sod/Tazobactam Sod (Zosyn 3.375 In Ns 100ml) 100 mls @ 25 mls/hr IVPB Q8 [facility]; Protocol Stop: 08/01/18 14:01 Last Admin: 07/27/18 13:12 Dose: 25 mls/hr Insulin Human Regular (Humulin R Med) 0 units SC ACHS [facility]; Protocol Last Admin: 07/27/18 16:42 Dose: 5 units Ipratropium [place] (Atrovent) 0.5 mg IH Q2 PRN PRN Reason: Shortness of Breath Metoprolol Tartrate (Lopressor) 25 mg GT BID [facility] Last Admin: 07/27/18 18:22 Dose: 25 mg Ondansetron HCl (Zofran Inj) 4 mg IVP Q6H PRN PRN Reason: Nausea/Vomiting Valproate Sodium (Depakene Oral Soln) 750 mg GT Q12 [facility] Last Admin: 07/27/18 10:04 Dose: 750 mg - Labs Labs: 07/27/18 07:30 07/27/18 07:30 Assessment and Plan - Assessment and Plan (Free Text) Assessment: Infectious diseases Attending Physician Attestation Patient seen and examined, discussed with medical dir. I have reviewed the patient's history of present illness, past medical, social, personal and family histories, pertinent physical exam findings, course so far in this hospital admission, pertinent laboratory and imaging results. I agree with the above findings, assessment and plan. In addition, continue Zosyn for possible intra- abdominal infection and UTI. Follow up urine cx results.
[2018-07-27] MEDS: Valproic Acid 250 mg/5 ml UD Cup GT SCH ×2 (10:04→21:32)
[2018-07-27] MEDS: Enoxaparin 40 mg Syringe SC SCH (10:05)
--- NOTE | 2018-07-27 12:56 | RAD ---
Date of service: 07/27/2018 HISTORY: crackles b/l lungs COMPARISON: 07/24/2018. FINDINGS: LUNGS: The lungs are well inflated and clear. PLEURA: No pleural effusions or pneumothorax. CARDIOVASCULAR: The heart is normal in size. No aortic atherosclerotic calcifications present. OSSEOUS STRUCTURES: Within normal limits for the patient's age. VISUALIZED UPPER ABDOMEN: Normal. OTHER FINDINGS: None. IMPRESSION: No active pulmonary disease.
--- NOTE | 2018-07-27 23:25 | DS ---
HISTORY OF PRESENT ILLNESS: He is resting comfortably in bed. Clinically, he is stable. He is on Atrovent, Depakene, Lipitor, Lopressor, Lovenox, Plavix, IV fluids, Zofran and Zosyn. Continue 7 more days as Zosyn and I would like to discharge him back to [place] to finish off the care. PHYSICAL EXAMINATION: VITAL SIGNS: He has a 99 temperature, 101 pulse, 141/99 blood pressure, 16 respiratory rate, 90% O2 sat on room air. HEENT: Head is atraumatic, normocephalic. HEART: Regular rate with decreased breath sounds, but clear. ABDOMEN: Soft. Feeding tube in place. EXTREMITIES: No edema. NEUROLOGIC: He is alert at his baseline. LABORATORY DATA: He has a 40.6 white count, 10.5 hemoglobin, 33.4 hematocrit with 421 platelets. Sodium 146, potassium 4.2, BUN is 15, creatinine 1, GFR is greater than 60, sugar is 198, calcium 9.3, total bili is 0.3. AST is 33, ALT is 11, alk phos is 118, total protein 8.1. ASSESSMENT AND PLAN: I talked with the Infectious Disease doctor that we are not going to discharge him today. We will hold off till white count comes down a little bit better. He will plan another day here. If white count trends down, we will get him back to [place]. He feels there could be an intra-abdominal infection. Also his feeding tube is doing better and he is moving his bowels. We will continue aggressive treatment and care as per Infectious Disease. Sonny Cano DO MTDD
[2018-07-28 03:24] LABS: URINE BILIRUBIN NEGATIVE (NEGATIVE); URINE BLOOD TRACE-INTACT (NEGATIVE); URINE GLUCOSE (UA) 500 mg/dL (NEGATIVE); URINE LEUKOCYTE ESTERASE NEGATIVE Leu/uL (NEGATIVE); URINE PROTEIN NEGATIVE mg/dL (<30 mg/dL); URINE UROBILINOGEN 0.2 E.U./dL (<1 E.U./dL)
[2018-07-28 03:28] LABS: URINE APPEARANCE CLEAR (CLEAR); URINE COLOR YELLOW (YELLOW)
[2018-07-28 03:37] LABS: URINE EPITHELIAL CELLS 0 - 2 /hpf (0-5); URINE WBC 0 - 2 /hpf (0-6)
[2018-07-28 03:38] LABS: URINE BACTERIA RARE /hpf
[2018-07-28 08:12] LABS: HEMOGLOBIN 9.6 g/dL (14.0-18.0); MEAN CELL VOLUME 83.2 fl (80.0-105.0); MEAN CORPUSCULAR HEMOGLOBIN 25.2 pg (25.0-35.0); MEAN CORPUSCULAR HGB CONC 30.3 g/dl (31.0-37.0); MEAN PLATELET VOLUME 11.5 fl (7.0-11.0); RBC 3.81 10^6/uL (3.5-6.1); RED CELL DISTRIBUTION WIDTH 19.5 % (11.5-14.5); WHITE BLOOD COUNT 11.3 10^3/uL (4.5-11.0)
--- NOTE | 2018-07-28 08:27 | CP.PCM.PN ---
<Mayito Santos - Last Filed: 07/28/18 13:40> Subjective - Date & Time of Evaluation Date of Evaluation: 07/28/18 Time of Evaluation: 07:00 - Subjective Subjective: ID progress note: Pt seen and examined at bedside. No acute events overnight. He is non verbal. Feeding with PEG with no vomiting. 12 Point ROS unobtainable Objective - Vital Signs/Intake and Output Vital Signs (last 24 hours): Temp Pulse Resp BP Pulse Ox 97.8 F 88 20 140/84 92 L 07/27/18 22:18 07/27/18 22:18 07/27/18 22:18 07/27/18 22:18 07/27/18 22:18 Intake and Output: 07/28/18 07/28/18 06:59 18:59 Intake Total 970 Output Total 400 Balance 970 -400 - Medications Medications: Current Medications Atorvastatin Calcium (Lipitor) 40 mg GT DIN [facility] Last Admin: 07/27/18 16:06 Dose: 40 mg Clopidogrel Bisulfate (Plavix) 75 mg GT DAILY [facility] Last Admin: 07/27/18 10:05 Dose: 75 mg Enoxaparin Sodium (Lovenox) 40 mg SC DAILY [facility]; Protocol Last Admin: 07/27/18 10:05 Dose: 40 mg Piperacillin Sod/Tazobactam Sod (Zosyn 3.375 In Ns 100ml) 100 mls @ 25 mls/hr IVPB Q8 [facility]; Protocol Stop: 08/01/18 14:01 Last Admin: 07/27/18 21:34 Dose: 25 mls/hr Insulin Human Regular (Humulin R Med) 0 units SC ACHS [facility]; Protocol Last Admin: 07/27/18 22:00 Dose: Not Given Ipratropium [place] (Atrovent) 0.5 mg IH Q2 PRN PRN Reason: Shortness of Breath Metoprolol Tartrate (Lopressor) 25 mg GT BID [facility] Last Admin: 07/27/18 18:22 Dose: 25 mg Ondansetron HCl (Zofran Inj) 4 mg IVP Q6H PRN PRN Reason: Nausea/Vomiting Valproate Sodium (Depakene Oral Soln) 750 mg GT Q12 [facility] Last Admin: 07/27/18 21:32 Dose: 750 mg - Labs Labs: 07/28/18 08:00 07/27/18 07:30 - Constitutional Appears: No Acute Distress - Head Exam Head Exam: ATRAUMATIC, NORMOCEPHALIC - Eye Exam Eye Exam: EOMI - Respiratory Exam Respiratory Exam: Clear to Ausculation Bilateral. absent: Rales, Rhonchi, Wheezes - Cardiovascular Exam Cardiovascular Exam: RRR, +S1, +S2 - GI/Abdominal Exam GI & Abdominal Exam: Soft. absent: Tenderness - Extremities Exam Extremities Exam: absent: Calf Tenderness, Pedal Edema - Neurological Exam Neurological Exam: Alert, Awake - Psychiatric Exam Psychiatric exam: Normal Mood - Skin Skin Exam: Dry, Warm Assessment and Plan - Assessment and Plan (Free Text) Assessment: 58-year-old male with past medical history of CVA with aphasia, traumatic brain injury, seizure disorder, hypertension, presents with vomiting. Patient also found to have leukocytosis of 16. Urology was consulted for urinary retension F/u repeat urine cx Continue with Zosyn for any intra-abdominal infection - for 5-7 days duration Follow-up septic workup Continue to monitor for any changes Case and plan was reviewed and discussed with Dr. Thornton <Ean Thornton S - Last Filed: 07/28/18 19:52> Objective - Vital Signs/Intake and Output Vital Signs (last 24 hours): Temp Pulse Resp BP Pulse Ox 98.9 F 101 H 16 144/96 H 95 07/28/18 06:00 07/28/18 06:00 07/28/18 06:00 07/28/18 06:00 07/28/18 06:00 Intake and Output: 07/28/18 07/29/18 18:59 06:59 Output Total 400 Balance -400 - Labs Labs: 07/28/18 08:00 07/28/18 08:00 Assessment and Plan - Assessment and Plan (Free Text) Assessment: Infectious diseases Attending Physician Attestation Patient seen and examined, discussed with medical operations supervisor. I have reviewed the patient's history of present illness, past medical, social, personal and family histories, pertinent physical exam findings, course so far in this hospital admission, pertinent laboratory and imaging results. I agree with the above findings, assessment and plan. In addition, continue Zosyn for patient with possible intra-abdominal infection. Complete up to 7 days of therapy.
[2018-07-28 08:36] LABS: ALB/GLOB RATIO 0.9 (1.1-1.8); ALBUMIN 3.5 g/dL (3.0-4.8); ALT/SGPT 12 U/L (7-56); AST/SGOT 24 U/L (17-59); BLOOD UREA NITROGEN 12 mg/dL (7-21); GFR NON-AFRICAN AMERICAN > 60
[2018-07-28 08:38] VITALS: BP 144/96; PULSE 101; RESP 16; TEMP 98.9; O2SAT 95
[2018-07-28] MEDS: Insulin Reg-MEDIUM-Coverage SC SCH ×3 (08:46→16:27)
[2018-07-28] MEDS: Valproic Acid 250 mg/5 ml UD Cup GT SCH (11:00)
[2018-07-28] MEDS: Enoxaparin 40 mg Syringe SC SCH (11:00)
[2018-07-28] MEDS: Piperacillin/Tazobact 3.375 gm 100 ML IVPB SCH (15:22)
--- NOTE | 2018-07-28 20:54 | DS ---
HISTORY OF PRESENT ILLNESS: He is pleasant the same, opens his eyes at his baseline and bedridden. He is on Atrovent, Depakene, Lipitor, insulin coverage, Lopressor, Lovenox, Plavix, IV fluids, Zofran and Zosyn. PHYSICAL EXAMINATION: VITAL SIGNS: He has a 98.9 temperature, 101 pulse, 144/96 blood pressure, 16 respiratory rate, 95% O2 sat on room air. HEENT: His head is atraumatic and normocephalic. His eyes open up at his baseline. HEART: Regular rate. LUNGS: Decreased breath sounds, but clear. ABDOMEN: Soft. Feeding tube in place. EXTREMITIES: Mild contracture. No edema. LABORATORY DATA: His white count finally came down to 11.3, much better, it was 16 when he got to the hospital; 9.6 hemoglobin; 31.7 hematocrit with 203 platelets. Sodium 145, potassium 4.2, BUN 12, creatinine 0.9, GFR is greater than 60, sugar is 301 with insulin coverage, calcium is 9, total bili is 0.2. AST is 24, ALT is 12, alk phos 104, and total protein 7.5. He had blood in urine and small leukocytes and nausea, vomiting and UTI, and he is finally not having any more nauseousness, vomiting and his bowels are moving, the feedings are working well. I am hoping to discharge him back to [place]. I will continue with the IV antibiotics for 7 more days. We will keep an eye on his bowels and his nauseousness. Hopefully, he will continue to do well and I will see him there tomorrow. Sonny Cano DO MTDRoe
--- NOTE | 2018-07-30 20:02 | CP.PCM.CON ---
History of Present Illness - History of Present Illness History of Present Illness: CC: VOMITING, NOW RESOLVED HX OF CVA, ORGANIC BRAIN SYNDROME, HYPERTENSION, TRAUMATIC BRAIN INJURY APHASIA CONTRACTURE NOW W POSSIBLE INFECTION ATTEMPTED CATHETRIZATION BY NURSING STAFF THIS PM WAS UNSUCCESSFUL BLADDER SCAN REVEALED ELEVATED RESIDUAL, APPRO 400 CC ON EXAM: MIDDLE AGED MALE CONTRACTURE OF EXTREMITIES UNABLE TO COMMUNICATE AWAKE AFEBRILE ABD: SOFT, NON-TENDER, NONDISTENDED GASTROSTOMY TUBE IN PLACE BACK: NO CVA TENDERNESS GENITALIA: WITHOUT INFLAMATION LAB DATA REVIEWED IMP: POSS UTI NEUROLOGIC IMPAIRMENT CLINICALLY IMPROVED SINCE ADMISSION P: I ATTEMPTED URETHRAL CATHETRIZATION / DILATION I WAS UNABLE TO PASS CATHETER TO BLADDER, DUE TO OBSTRUCTION OF THE BULBOUS URETHRA - POSSIBLE STRICTURE OR URETRHAL FALSE PASSAGE REC: MONITOR URINE OUTPUT AND CLINICAL COURSE. CONTINUE ANTIBIOTIC RX. POSS NEED FOR CYSTOSCOPY AND CATHETER INSERTION WILL DISCUSS WITH ATTENDING MD. DISCUSSED W NURSING STAFF Y[facility] Past Patient History - Past Social History Smoking Status: Never Smoked - CARDIAC Hx Cardiac Disorders: Yes Hx Hypertension: Yes - NEUROLOGICAL Hx Neurological Disorder: Yes HX Cerebrovascular Accident: Yes - HEENT Hx HEENT Problems: Yes Hx Deafness: Yes - MUSCULOSKELETAL/RHEUMATOLOGICAL Hx Musculoskeletal Disorders: Yes Hx Arthritis: Yes Hx Falls: Yes Other/Comment: contractures - GASTROINTESTINAL Hx Gastrointestinal Disorders: Yes Hx Gastroesophageal Reflux: Yes - GENITOURINARY/GYNECOLOGICAL Hx Genitourinary Disorders: Yes Other/Comment: neuromuscular dysfuntion of bladder - PSYCHIATRIC Hx Substance Use: No Meds Allergies/Adverse Reactions: Allergies Allergy/AdvReac Type Severity Reaction Status Date / Time No Known Allergies Allergy Verified 07/24/18 20:38 Results - Vital Signs Recent Vital Signs: Last Vital Signs Temp 98.9 F 07/28/18 06:00 Pulse 101 H 07/28/18 06:00 Resp 16 07/28/18 06:00 BP 144/96 H 07/28/18 06:00 Pulse Ox 95 07/28/18 06:00 - Labs Result Diagrams: 07/28/18 08:00 07/28/18 08:00 Assessment & Plan - Assessment and Plan (Free Text) Assessment: SEE ABOVE - Date & Time Date: 07/27/18 Time: 19:20
== END 2018-07-28 17:40 | DRG 392 ==
LOC: ED 20:29 → ERH 07-25 02:03 → 5RSO 07-25 05:04 → OBSVTOIN 07-25 09:13 → 5RSO 07-27 12:57
PROVIDERS: ADMIT Family Medicine; ATTEND Family Medicine
DX: R11.2 Nausea with vomiting, unspecified (principal); R65.10 Systemic inflammatory response syndrome (SIRS) of non-infectious origin without acute organ dysfunction; N39.0 Urinary tract infection, site not specified; I69.320 Aphasia following cerebral infarction; G40.909 Epilepsy, unspecified, not intractable, without status epilepticus; I10 Essential (primary) hypertension; K21.9 Gastro-esophageal reflux disease without esophagitis; H91.90 Unspecified hearing loss, unspecified ear; F09 Unspecified mental disorder due to known physiological condition; Z93.1 Gastrostomy status; Z74.01 Bed confinement status; Z87.820 Personal history of traumatic brain injury

== ENCOUNTER 2018-11-13 23:36 | Observation (INO) | payer MEDICARE, OTHER ==
[2018-11-13 23:36] VITALS: BMI 21.1
--- NOTE | 2018-11-14 00:21 | ED PDOC ---
Arrival/HPI - General Chief Complaint: GI Problem Time Seen by Provider: 11/13/18 23:49 Historian: Custodial EM Caveat: Other (Nonverbal (traumatic brain injury)) - History of Present Illness Narrative History of Present Illness (Text): 11/14/18 00:19 58 year old male, whose past medical history includes hypertension, traumatic brain injury, AMS, G-tube placement, CVA with aphasia, and seizures, presents to the emergency department from senior living, for evaluation of episodes of coffee ground emesis. Patient is nonverbal, HPI and ROS limited. PMD: Dr. Bruce Javier Past Medical History - Provider Review Nursing Documentation Reviewed: Yes - Cardiac Hx Cardiac Disorders: Yes Hx Hypertension: Yes - Pulmonary Hx Respiratory Disorders: No - Neurological Hx Neurological Disorder: Yes Hx Seizures: Yes Other/Comment: Traumatic Brain Injury - HEENT Hx Deafness: Yes (DEAF/MUTE) - Renal Hx Renal Disorder: No - Endocrine/Metabolic Hx Endocrine Disorders: No - Hematological/Oncological Hx Blood Disorders: No - Integumentary Hx Dermatological Disorder: No - Musculoskeletal/Rheumatological Hx Musculoskeletal Disorders: Yes Hx Arthritis: Yes Hx Falls: No - Gastrointestinal Hx Gastrointestinal Disorders: Yes Hx Gastroesophageal Reflux: Yes Other/Comment: Gastostomy - Genitourinary/Gynecological Hx Genitourinary Disorders: No - Psychiatric Hx Substance Use: No - Anesthesia Hx Anesthesia: Yes Family/Social History - Physician Review Nursing Documentation Reviewed: Yes Family/Social History: No Known Family HX Smoking Status: Smoker Currrent Status Unknown Hx Alcohol Use: Yes Hx Substance Use: No Allergies/Home Meds Allergies/Adverse Reactions: Allergies No Known Allergies Allergy (Verified 11/13/18 23:46) Home Medications: Home Meds Medication Instructions Recorded Confirmed Enoxaparin [Lovenox] 40 mg SQ DAILY 11/13/18 11/14/18 Insulin Human Regular [HumuLIN R] 100 units SC BID PRN 11/13/18 11/14/18 Valproic Acid (As Sodium Salt) 750 mg GT BID 11/13/18 11/13/18 [Depakene] Acetaminophen [Tylenol 325mg tab] 2 tab GT Q4 PRN 11/14/18 11/14/18 Acetaminophen [Tylenol 325mg tab] 2 tab GT Q4 PRN 11/14/18 11/14/18 Atorvastatin [Lipitor] 40 mg GT HS 11/14/18 11/14/18 Clopidogrel [Plavix] 75 mg GT DAILY 11/14/18 11/14/18 Ipratropium 0.02% [Ipratropium 0.02 % IH Q2 PRN 11/14/18 11/14/18 [place] 2.5 Ml] Magnesium Hydroxide [Milk of 30 ml GT DAILY PRN 11/14/18 11/14/18 Magnesia] Metoprolol Tartrate [Lopressor] 25 mg GT BID 11/14/18 11/14/18 Nystatin [Nyamyc] 100,000 unit TP QSHIFT 11/14/18 11/14/18 Ondansetron HCl [Zofran] 4 mg GT Q4 PRN 11/14/18 11/14/18 Zinc Oxide [[place]] 10 gm TP QSHIFT 11/14/18 11/14/18 Review of Systems - Physician Review All systems were reviewed & negative as marked: Yes - Review of Systems Systems not reviewed;Unavailable: Other (Nonverbal (traumatic brain injury)) Gastrointestinal: Vomiting (coffee ground emesis) Physical Exam Vital Signs Reviewed: Yes Vital Signs Temp Pulse Resp BP Pulse Ox 11/13/18 23:46 98.6 F 82 18 148/79 94 L Temperature: Afebrile Blood Pressure: Normal Pulse: Regular Respiratory Rate: Normal Appearance: Positive for: Well-Appearing, Non-Toxic, Comfortable Pain Distress: None Mental Status: Positive for: other (Alert) - Systems Exam Head: Present: Atraumatic, Normocephalic Pupils: Present: PERRL Extroacular Muscles: Present: EOMI Conjunctiva: Present: Normal Mouth: Present: Moist Mucous Membranes Neck: Present: Normal Range of Motion Respiratory/Chest: Present: Clear to Auscultation, Good Air Exchange. No: Respiratory Distress, Accessory Muscle Use Cardiovascular: Present: Regular Rate and Rhythm, Normal S1, S2. No: Murmurs Abdomen: Present: Feeding Tubes (PEG tube). No: Tenderness, Distention, Peritoneal Signs Back: Present: Normal Inspection Upper Extremity: Present: Normal Inspection. No: Cyanosis, Edema Lower Extremity: Present: Normal Inspection. No: Edema Neurological: Present: GCS=15, CN II-XII Intact, Speech Normal Skin: Present: Warm, Dry, Normal Color. No: Rashes Psychiatric: Present: Alert, Oriented x 3, Normal Insight, Normal Concentration Medical Decision Making ED Course and Treatment: 11/14/18 00:24 Impression: 58 year old male presents for evaluation of episodes of coffee ground emesis. Plan: -- Labs -- EKG -- Chest X-ray -- Protonix Inj -- Reassess and disposition Prior Visits: Notes and results from previous visits were reviewed. Progress Notes: EKG shows NSR at 81 BPM. Interpreted by me. CXR Impression: As read by me, no free air. 11/14/18 01:[address] Cano who is aware and agrees with the plan. Accepts patient into his service CT SCAN OF THE ABDOMEN AND PELVIS WITHOUT ORAL OR IV CONTRAST. Electronically signed on November 14, 2018 2:53:44 AM EDT by: Janay Henriquez M.D. IMPRESSION: Bilateral peribronchial interstitial thickening suggestive of bronchitis. Increased bibasilar airspace disease of the lower lobes which Secondary to progressive changes of multifocal subsegmental atelectasis and/or developing bibasilar pneumonia. Moderate sliding hiatal hernia, unchanged. Percutaneous gastrostomy tube is in good position with its tip at the level of the gastric body. Uncomplicated colonic diverticulosis. Contrast is noted in the colon. Mild apparent thickening of the mid aspect of the sigmoid colon, probably secondary to underdistention/spasm. Mild diffuse thickening of bladder. Underdistention versus mild cystitis. Mild diffuse spondylosis. - Lab Interpretations I have reviewed the lab results: Yes - RAD Interpretation Radiology Orders: 11/13/18 23:56 CHEST PORTABLE [RAD] Stat Scow Hand: ED Physician - EKG Interpretation Interpreted by ED Physician: Yes Type: 12 lead EKG - Medication Orders Current Medication Orders: Discontinued Medications Pantoprazole Sodium (Protonix Inj) 40 mg IVP ONCE STA Stop: 11/13/18 23:58 - Scribe Statement The provider has reviewed the documentation as recorded by the Nila Kearney Provider Raineibe Attestation: All medical record entries made by the Scribkevin were at my direction and personally dictated by me. I have reviewed the chart and agree that the record accurately reflects my personal performance of the history, physical exam, medical decision making, and the department course for this patient. I have also personally directed, reviewed, and agree with the discharge instructions and disposition. Disposition/Present on Arrival - Present on Arrival Any Indicators Present on Arrival: No History of DVT/PE: No History of Uncontrolled Diabetes: No Urinary Catheter: Yes History of Decub. Ulcer: No History Surgical Site Infection Following: None - Disposition Have Diagnosis and Disposition been Completed?: Yes Diagnosis: Upper gastrointestinal bleeding Disposition: HOSPITALIZED Disposition Time: 01:25 Condition: FAIR
[2018-11-14 00:56] LABS: BASO # 0.03 K/mm3 (0.0-2.0); BASO % 0.3 % (0.0-3.0); EOS # 0.3 (0.0-0.7); EOS % 2.4 % (1.5-5.0); LYMPH # 3.2 (1.2-3.4); LYMPH % 26.8 % (22.0-35.0); MEAN CORPUSCULAR HGB CONC 32.1 g/dl (31.0-37.0); MEAN PLATELET VOLUME 10.1 fl (7.0-11.0); MONO % 8.6 % (1.0-6.0); RBC 5.46 10^6/uL (3.5-6.1); RED CELL DISTRIBUTION WIDTH 19.5 % (11.5-14.5)
[2018-11-14 01:02] LABS: INR 1.06; PARTIAL THROMBOPLASTIN TIME 29.7 Seconds (26.9-38.3); PROTHROMBIN TIME 11.8 SECONDS (9.4-12.5)
[2018-11-14 01:06] LABS: ALB/GLOB RATIO 0.9 (1.1-1.8); ALBUMIN 3.6 g/dL (3.0-4.8); ALT/SGPT 8 U/L (7-56); AMYLASE 87 U/L (35-125); AST/SGOT 29 U/L (17-59); BLOOD UREA NITROGEN 11 mg/dL (7-21); CALCIUM 8.6 mg/dL (8.4-10.5); GFR NON-AFRICAN AMERICAN > 60; HEMOGLOBIN 13.1 g/dL (14.0-18.0); LIPASE 74 U/L (23-300); MEAN CELL VOLUME 74.7 fl (80.0-105.0)
[2018-11-14 01:16] LABS: TROPONIN I < 0.01 ng/mL
[2018-11-14 01:49] VITALS: PULSE 74
[2018-11-14 05:40] VITALS: RESP 20
[2018-11-14] MEDS ORDERED: Ipratropium 0.02% Inhal Soln (0.5 mg/2.5 ml) UD IH PRN (05:42)
[2018-11-14] MEDS ORDERED: Acetaminophen 650mg/20.3ml solution UD GT PRN ×2 (06:12)
[2018-11-14] MEDS ORDERED: Nystatin 100,000 Units/gm Topical Pow(15 gm) TOP SCH (07:00)
[2018-11-14] MEDS ORDERED: Zinc Oxide Topical 40% Oint (Desitin) TOP SCH (07:00)
--- NOTE | 2018-11-14 07:44 | RAD ---
Date of service: 11/14/2018 HISTORY: gi bleed COMPARISON: Chest radiograph 07/27/2018. TECHNIQUE: 1 view obtained. FINDINGS: LUNGS: No acute infiltrate bilaterally. Trace persistent linear atelectasis or fibrosis in the right base once again. PLEURA: No significant pleural effusion identified, no pneumothorax apparent. CARDIOVASCULAR: No aortic atherosclerotic calcification present. Normal cardiac size. No pulmonary vascular congestion. OSSEOUS STRUCTURES: No significant abnormalities. VISUALIZED UPPER ABDOMEN: Normal. OTHER FINDINGS: None. IMPRESSION: Trace linear atelectasis/fibrosis right base again evident. No acute infiltrate. No pulmonary vascular congestion.
[2018-11-14] MEDS ORDERED: Sodium Chloride 0.45% 1,000 ML IV SCH (08:30)
[2018-11-14 08:36] VITALS: BP 150/87; TEMP 97.8; O2SAT 99
--- NOTE | 2018-11-14 09:02 | CT ---
Date of service: 11/14/2018 PROCEDURE: CT abdomen and pelvis HISTORY: Abdominal pain COMPARISON: Comparison made with prior CT scan of the abdomen pelvis the taking a good idea of given your 09/2018. TECHNIQUE: Contiguous axial images of the abdomen and pelvis. Oral contrast was administered. No IV contrast given. Coronal and Sagittal reformats generated. Radiation dose: Total exam DLP = 528.51 mGy-cm. This CT exam was performed using one or more of the following dose reduction techniques: Automated exposure control, adjustment of the mA and/or kV according to patient size, and/or use of iterative reconstruction technique. FINDINGS: LOWER THORAX: Mild atelectasis both posterior lower lung glasgow right greater than left. No effusion. No basilar pneumothorax. Heart is enlarged. No significant pericardial effusion. There is small hiatal hernia with wall thickening of the distal esophagus that likely in part due to protrusion gastric mucosa however esophagitis or other intrinsic/invasive wall lesion cannot be excluded on this exam. Clinical correlation recommended. LIVER: The liver exhibits relatively normal size and attenuation pattern without mass collection or calcification. GALLBLADDER AND BILE DUCTS: Unremarkable. PANCREAS: This appears atrophic and fatty replaced. SPLEEN: Spleen exhibits normal size and attenuation pattern without mass collection or calcification. ADRENALS: No adrenal lesions. KIDNEYS AND URETERS: Kidneys demonstrate relatively symmetric size. No evidence of nephrolithiasis or hydronephrosis. BLADDER: The urinary bladder is incompletely distended with slight thick-walled appearance. Muscular hypertrophy may contribute. Note the possibility of a cystitis not excluded. Clinical correlation with urinalysis recommended. REPRODUCTIVE: Prostate gland measures approximately the 3.7 cm in transverse dimension. APPENDIX: Normal appearing appendix. BOWEL: Evaluation of the bowel is somewhat limited due to the lack of oral contrast material. There is an in situ PEG tube. Visualized loops of small bowel exhibit normal contour and caliber. No evidence of acute mechanical small bowel obstruction. Stool and air seen throughout the large bowel. PERITONEUM: Unremarkable. No fluid collection. No free air. There is a moderate-sized left-sided inguinal hernia containing mesenteric fat and what may represent a small amount of fluid as well as granulation tissue.. There is a tiny fat containing umbilical hernia. LYMPH NODES: Unremarkable. No enlarged lymph nodes. VASCULATURE: Unremarkable. No aortic aneurysm. Aortic atherosclerotic calcification or mural plaque present. BONES: Mild multilevel degenerative spondylosis of the lower thoracic and lumbar spine. There is a mild levoscoliosis centered in the lower lumbar region. OTHER FINDINGS: None. IMPRESSION: There is a small hiatal hernia with wall thickening of the distal esophagus likely in part due to protrusion of gastric mucosa however esophagitis or other intrinsic/invasive wall lesion not excluded. Mild bibasilar atelectasis. Urinary bladder wall thickening in part due to incomplete distention however urinalysis recommended to exclude cystitis or other intrinsic/invasive wall lesion. Moderate size left inguinal hernia containing mesenteric fat apparent fluid and granulation tissue. Note that this report was placed in PA review folder for follow up.
--- NOTE | 2018-11-14 09:10 | CP.PCM.CON ---
<Raulito Ryan - Last Filed: 11/14/18 09:11> History of Present Illness - History of Present Illness History of Present Illness: PGY6 GI Fellow Consult Note Patient is a 58yo AA male with PMHx significant for CVA with resultant aphasia and dysphagia requiring PEG placement, traumatic brain injury, seizure disorder and HTN who presented from assisted with concern for coffee ground emesis. The patient cannot contribute to history. Per EMR, patient was noted to have an episode of dark brown emesis and was referred to the [facility] for evaluation. Per nursing staff and ED documentation, no further episodes of vomiting have been noted since arrival. No family at bedside to augment history. 12 system ROS cannot be performed given clinical condition PMHx: See HPI PSH: Unable to assess FHx: Unable to assess Social: Unable to assess but no known tobacco, EtOH or illicit drug use noted Endo: PEG placement in October 2017 Past Patient History - Past Medical History & Family History Past Medical History?: Yes - Past Social History Smoking Status: Smoker Currrent Status Unknown - CARDIAC Hx Cardiac Disorders: Yes Hx Hypertension: Yes - PULMONARY Hx Respiratory Disorders: No - NEUROLOGICAL Hx Neurological Disorder: Yes Hx Seizures: Yes Other/Comment: Traumatic Brain Injury - HEENT Hx Deafness: Yes (DEAF/MUTE) - RENAL Hx Chronic Kidney Disease: No - ENDOCRINE/METABOLIC Hx Endocrine Disorders: No - HEMATOLOGICAL/ONCOLOGICAL Hx Blood Disorders: No - INTEGUMENTARY Hx Dermatological Problems: No - MUSCULOSKELETAL/RHEUMATOLOGICAL Hx Musculoskeletal Disorders: Yes Hx Arthritis: Yes Hx Falls: No - GASTROINTESTINAL Hx Gastrointestinal Disorders: Yes Hx Gastroesophageal Reflux: Yes Other/Comment: Gastostomy - GENITOURINARY/GYNECOLOGICAL Hx Genitourinary Disorders: No - PSYCHIATRIC Hx Substance Use: No - SURGICAL HISTORY Hx Surgeries: Yes Other/Comment: PEG tube placement - ANESTHESIA Hx Anesthesia: Yes Meds Allergies/Adverse Reactions: Allergies Allergy/AdvReac Type Severity Reaction Status Date / Time No Known Allergies Allergy Verified 11/13/18 23:46 - Medications Medications: Current Medications Acetaminophen (Tylenol 650mg/20.3ml Solution Ud) 650 mg GT Q4H PRN PRN Reason: TEMPERATURE Acetaminophen (Tylenol 650mg/20.3ml Solution Ud) 650 mg GT Q4H PRN PRN Reason: Pain, Mild (1-3) Sodium Chloride (Sodium Chloride 0.45%) 1,000 mls @ 40 mls/hr IV .Q24H [facility] Ipratropium [place] (Atrovent) 0.5 mg IH Q2 PRN PRN Reason: Shortness of Breath Metoprolol Tartrate (Lopressor) 25 mg GT BID [facility] Nystatin (Nystop Topical Powder) 0 gm TOP QSHIFT [facility] Ondansetron HCl (Zofran Tab) 4 mg GT Q4 PRN PRN Reason: Nausea/Vomiting Pantoprazole Sodium (Protonix Inj) 40 mg IVP DAILY [facility] Petrolatum (Desitin Maximum Strength Topical 40% Oint) 0 gm TOP QSHIFT [facility] Valproate Sodium (Depakene Oral Soln) 750 mg GT BID [facility] Physical Exam - Constitutional Appears: No Acute Distress, Chronically Ill - Eye Exam Eye Exam: absent: EOMI, PERRL - ENT Exam ENT Exam: Mucous Membranes Moist - Respiratory Exam Respiratory Exam: Clear to Auscultation Bilateral. absent: Rales, Rhonchi, Wheezes - Cardiovascular Exam Cardiovascular Exam: RRR, +S1, +S2 - GI/Abdominal Exam GI & Abdominal Exam: Normal Bowel Sounds, Soft. absent: Distended, Firm, Guarding, Organomegaly, Rigid, Tenderness Additional comments: PEG noted without any dark content in tubing - Rectal Exam Rectal Exam: Hemorrhoids (internal). absent: Black Stool, Bloody Stool, Fecal Impaction Additional comments: soft light brown stool - Extremities Exam Extremities exam: Negative for: pedal edema Additional comments: limb contractures noted - Neurological Exam Neurological exam: Altered - Skin Skin Exam: Dry, Warm Results - Vital Signs Recent Vital Signs: Last Vital Signs Temp 97.8 F 11/14/18 08:33 Pulse 74 11/14/18 08:33 Resp 20 11/14/18 08:33 BP 150/87 11/14/18 08:33 Pulse Ox 99 11/14/18 08:33 - Labs Result Diagrams: 11/14/18 00:40 11/14/18 00:40 Labs: Laboratory Results - last 24 hr 11/14/18 11/14/18 11/14/18 00:40 00:40 00:40 WBC 12.0 H RBC 5.46 Hgb 13.1 L D Hct 40.8 L MCV 74.7 L D MCH 24.0 L MCHC 32.1 RDW 19.5 H Plt Count 312 MPV 10.1 Neut % (Auto) 61.9 Lymph % (Auto) 26.8 Kimble % (Auto) 8.6 H Eos % (Auto) 2.4 Baso % (Auto) 0.3 Lymph # (Auto) 3.2 Kimble # (Auto) 1.0 H Eos # (Auto) 0.3 Baso # (Auto) 0.03 Absolute Neuts (auto) 7.41 H PT 11.8 INR 1.06 APTT 29.7 Sodium 136 Potassium 4.5 Chloride 103 Carbon Dioxide 26 Anion Gap 11 BUN 11 Creatinine 1.0 Est GFR ( Amer) > 60 Est GFR (Non-Af Amer) > 60 Random Glucose 92 Calcium 8.6 Total Bilirubin 0.3 AST 29 ALT 8 Alkaline Phosphatase 79 Lactate Dehydrogenase 386 Total Creatine Kinase 78 Troponin I < 0.01 Total Protein 7.8 Albumin 3.6 Globulin 4.2 Albumin/Globulin Ratio 0.9 L Amylase 87 Lipase 74 Blood Type Blood Type Confirm Antibody Screen BBK History Checked 11/14/18 11/14/18 00:40 01:25 WBC RBC Hgb Hct MCV MCH MCHC RDW Plt Count MPV Neut % (Auto) Lymph % (Auto) Kimble % (Auto) Eos % (Auto) Baso % (Auto) Lymph # (Auto) Kimble # (Auto) Eos # (Auto) Baso # (Auto) Absolute Neuts (auto) PT INR APTT Sodium Potassium Chloride Carbon Dioxide Anion Gap BUN Creatinine Est GFR ( Amer) Est GFR (Non-Af Amer) Random Glucose Calcium Total Bilirubin AST ALT Alkaline Phosphatase Lactate Dehydrogenase Total Creatine Kinase Troponin I Total Protein Albumin Globulin Albumin/Globulin Ratio Amylase Lipase Blood Type A POSITIVE Blood Type Confirm A POSITIVE Antibody Screen Negative BBK History Checked No verified bt Assessment & Plan - Assessment and Plan (Free Text) Assessment: Patient is a 58yo AA male with PMHx significant for CVA with resultant aphasia and dysphagia requiring PEG placement, traumatic brain injury, seizure disorder and HTN who presented from assisted with concern for coffee ground emesis -Vomiting -Dysphagia requiring PEG feeding Plan: -No witnessed episodes of vomiting since admission -No evidence for GI bleeding noted on physical exam or on lab work -Encourage resumption of tube feeds and free water flushes -Patient should remain at 45 degree angle during infusion of tube feeds -Antiemetic therapy PRN -OK for D/C from GI standpoint if tolerating tube feeds - Date & Time Date: 11/14/18 Time: 07:15 <Hunter Adams - Last Filed: 11/14/18 09:33> Meds - Medications Medications: Current Medications Acetaminophen (Tylenol 650mg/20.3ml Solution Ud) 650 mg GT Q4H PRN PRN Reason: TEMPERATURE Acetaminophen (Tylenol 650mg/20.3ml Solution Ud) 650 mg GT Q4H PRN PRN Reason: Pain, Mild (1-3) Sodium Chloride (Sodium Chloride 0.45%) 1,000 mls @ 40 mls/hr IV .Q24H [facility] Ipratropium [place] (Atrovent) 0.5 mg IH Q2 PRN PRN Reason: Shortness of Breath Metoprolol Tartrate (Lopressor) 25 mg GT BID [facility] Nystatin (Nystop Topical Powder) 0 gm TOP QSHIFT [facility] Ondansetron HCl (Zofran Tab) 4 mg GT Q4 PRN PRN Reason: Nausea/Vomiting Pantoprazole Sodium (Protonix Inj) 40 mg IVP DAILY [facility] Petrolatum (Desitin Maximum Strength Topical 40% Oint) 0 gm TOP QSHIFT [facility] Valproate Sodium (Depakene Oral Soln) 750 mg GT BID [facility] Results - Vital Signs Recent Vital Signs: Last Vital Signs Temp 97.8 F 11/14/18 08:33 Pulse 74 11/14/18 08:33 Resp 20 11/14/18 08:33 BP 150/87 11/14/18 08:33 Pulse Ox 99 11/14/18 08:33 - Labs Result Diagrams: 11/14/18 00:40 11/14/18 00:40 Labs: Laboratory Results - last 24 hr 11/14/18 11/14/18 11/14/18 00:40 00:40 00:40 WBC 12.0 H RBC 5.46 Hgb 13.1 L D Hct 40.8 L MCV 74.7 L D MCH 24.0 L MCHC 32.1 RDW 19.5 H Plt Count 312 MPV 10.1 Neut % (Auto) 61.9 Lymph % (Auto) 26.8 Kimble % (Auto) 8.6 H Eos % (Auto) 2.4 Baso % (Auto) 0.3 Lymph # (Auto) 3.2 Kimble # (Auto) 1.0 H Eos # (Auto) 0.3 Baso # (Auto) 0.03 Absolute Neuts (auto) 7.41 H PT 11.8 INR 1.06 APTT 29.7 Sodium 136 Potassium 4.5 Chloride 103 Carbon Dioxide 26 Anion Gap 11 BUN 11 Creatinine 1.0 Est GFR ( Amer) > 60 Est GFR (Non-Af Amer) > 60 Random Glucose 92 Calcium 8.6 Total Bilirubin 0.3 AST 29 ALT 8 Alkaline Phosphatase 79 Lactate Dehydrogenase 386 Total Creatine Kinase 78 Troponin I < 0.01 Total Protein 7.8 Albumin 3.6 Globulin 4.2 Albumin/Globulin Ratio 0.9 L Amylase 87 Lipase 74 Blood Type Blood Type Confirm Antibody Screen BBK History Checked 11/14/18 11/14/18 00:40 01:25 WBC RBC Hgb Hct MCV MCH MCHC RDW Plt Count MPV Neut % (Auto) Lymph % (Auto) Kimble % (Auto) Eos % (Auto) Baso % (Auto) Lymph # (Auto) Kimble # (Auto) Eos # (Auto) Baso # (Auto) Absolute Neuts (auto) PT INR APTT Sodium Potassium Chloride Carbon Dioxide Anion Gap BUN Creatinine Est GFR ( Amer) Est GFR (Non-Af Amer) Random Glucose Calcium Total Bilirubin AST ALT Alkaline Phosphatase Lactate Dehydrogenase Total Creatine Kinase Troponin I Total Protein Albumin Globulin Albumin/Globulin Ratio Amylase Lipase Blood Type A POSITIVE Blood Type Confirm A POSITIVE Antibody Screen Negative BBK History Checked No verified bt Attending/Attestation - Attestation I have personally seen and examined this patient.: Yes I have fully participated in the care of the patient.: Yes I have reviewed all pertinent clinical information: Yes Notes (Text): 11/14/18 09:25 I have seen and examined patient with GI fellow. Agree with above documentation with the following additions. In brief, this is a 58 year old male with history of CVA s/p aphasia s/p PEG, deaf, blind, seizure disorder, HTN who is sent from nursing facility for evaluation of coffee ground emesis. Patient is non-verbal at baseline and not able to participate in conversation. Additional information obtained via chart review, discussion with nursing staff. There has not been any recurrent vomiting since arrival to hospital. No reported abdominal pain, fever/chills. CVA s/p aphasia and PEG placement Deaf Blind Seizure disorder HTN Vomiting - resolved - H/H stable, continue to monitor - Continue with PPI therapy - Rectal exam performed today shows formed light brown stool without presence of palpable lesions - Anti-emetic therapy PRN - May resume tube feeding as tolerated - CT imaging reviewed showing hiatal hernia, ?esophagitis or wall lesion. Given patient condition with multiple medical comorbidities would not favor invasive endoscopic approach unless clinical condition changes. No further planned GI intervention, will sign off case. Please reconsult as necessary, thank you.
[2018-11-14] MEDS ORDERED: Valproic Acid 250 mg/5 ml UD Cup GT SCH (10:00)
--- NOTE | 2018-11-14 16:56 | HP ---
DATE OF EXAM: 11/14/2018 HISTORY OF PRESENT ILLNESS: I got a call over the weekend that he was throwing up blood, I sent him to the [facility] emergency room. This is 58-year-old man, who has a past medical history of hypertension, traumatic brain injury, altered mental status, G tube placement, CVA, aphasia, seizures, is now in [facility] with coffee-ground emesis and blood. He is nonverbal. He is on his medications. We are checking his stool for blood. GI is consulted. He has got a gastrostomy tube. FAMILY HISTORY: Unknown family history. SOCIAL HISTORY: He does not smoke anymore, does not drink anymore. No substance abuse, but he used to. ALLERGIES: NO KNOWN DRUG ALLERGIES. MEDICATIONS: On Lovenox, insulin, valproic acid, Tylenol, Lipitor, Plavix, ipratropium, nystatin, Zofran, zinc oxide. REVIEW OF SYSTEMS: is nonverbal, but he looks his baseline from a traumatic brain injury and he is coughing up coffee-ground emesis. PHYSICAL EXAMINATION: GENERAL: He is well-appearing, nontoxic, comfortable at this time. He is alert. VITAL SIGNS: He has a 98.6 temperature, 82 pulse, 18 respiratory rate, 148/79 blood pressure, 94% O2 sat. HEENT: Eyes open at his baseline. Head is atraumatic, normocephalic. Extraocular muscles are intact. Throat is dry. NECK: Supple. HEART: Regular rate. Normal S1 and S2. LUNGS: Decreased breath sounds, but clear to auscultation. No wheezes, no rhonchi, no rales. Poor inspiration overall. ABDOMEN: He has got a feeding tube. Abdomen is soft, nontender, positive bowel sounds. No guarding. No rebound. No CVA tenderness appreciated. EXTREMITIES: Contracted. No edema. NEUROLOGIC: He does not talk. Cranial nerves II through XII grossly intact. SKIN: For I could tell is intact. No apparent rashes. Alert, at his baseline. LABORATORY DATA: He had multiple tests done. He has a 12 white count, 13.1 hemoglobin, 40.8 hematocrit with 312 platelets. His INR is 1.06. He has 136 sodium, potassium 4.5, BUN 11, creatinine 1, GFR is greater than 60. Sugar is 92, calcium is 8.6, total bili is 0.3. AST is 29, ALT is 8, alk phos is 79. Lactate dehydrogenase is 386. Total creatine kinase is 78. Troponin I is less than 0.01, total protein is 7.8, amylase is 87, lipase is 74. DIAGNOSTIC DATA: He had a CAT scan of the abdomen and pelvis, which showed some type of bronchitis with some thickening, but nothing acute. Chest x-ray showed trace linear atelectasis, no acute infiltrate, no pulmonary vascular congestion. I discussed this with GI this morning he could be discharged back to [facility]. I have reviewed his morning's labs. He is now being admitted for GI bleed, coffee-ground emesis, history of traumatic brain injury. He is on observation level of care. Sonny Cano DO MTDRoe
--- NOTE | 2018-11-14 17:37 | CARD ---
APPROVED REPORT Date of service: 11/14/2018 EKG Measurement Heart [id number] <Conclusion> Normal sinus rhythm Normal Electrocardiogram
--- NOTE | 2018-11-15 01:22 | DS ---
HISTORY OF PRESENT ILLNESS: I discussed this at length with the window decorator to examined him. I went over the CAT scan and his labs and he is okay to go back to [place]. He had a coffee-ground emesis, GI bleed. He is comfortable in bed. He is back to his baseline. PHYSICAL EXAMINATION: VITAL SIGNS: 97.8 temperature, 74 pulse, 150/87 blood pressure, 20 respiratory rate, and 99% O2 sat. HEENT: Head; atraumatic and normocephalic. HEART: Regular rate. LUNGS: Decreased breath sounds. ABDOMEN: Soft. Feeding tube in place. EXTREMITIES: Contracted, no edema. LABORATORY DATA: His labs are stable. He did a rectal this morning, the window decorator found no blood and normal stool. discharge him back to [place], he will be discharged. He was here for observation level of care and is here for coffee-ground emesis. Sonny Cano DO MTDD
== END 2018-11-14 16:27 | disposition home or self-care (01) ==
LOC: ED 23:36 → INTOOBSV 11-14 01:12 → ERH 11-14 01:12 → 3RSO 11-14 02:12
PROVIDERS: ADMIT Family Medicine; ATTEND Family Medicine
DX: K92.0 Hematemesis (principal); I69.320 Aphasia following cerebral infarction; I69.391 Dysphagia following cerebral infarction; G40.909 Epilepsy, unspecified, not intractable, without status epilepticus; Z93.1 Gastrostomy status; I10 Essential (primary) hypertension; H91.3 Deaf nonspeaking, not elsewhere classified; Z87.820 Personal history of traumatic brain injury; K44.9 Diaphragmatic hernia without obstruction or gangrene; K57.30 Diverticulosis of large intestine without perforation or abscess without bleeding; Z79.02 Long term (current) use of antithrombotics/antiplatelets; Z87.891 Personal history of nicotine dependence
CPT/HCPCS: 71045; 74176; 80053; 82150; 82550; 83615; 83690; 84484; 85025; 85610; 85730; 86850; 86900; 93005; 96374; C9113; G0378; J7030